=== PATIENT | female | born 1965 | race Caucasian/White ===

== ENCOUNTER 2025-02-23 14:36 | Outpatient (AMB) | payer OTHER, SELFPAY ==
--- NOTE | 2025-02-23 14:43 | A.OFFPC_ITS ---
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 Required: No Accompanied by: Self / Same As Patient Allergies Penicillins (PENICILLINS) Allergy (Mild, Verified 02/23/25 16:08) RASH, SOB acetaminophen (ACETAMINOPHEN) Allergy (Unknown, Verified 02/23/25 16:08) UNSPECIFIED LIVER INJURY doxycycline (DOXYCYCLINE) Allergy (Unknown, Verified 02/23/25 16:08) SENSITIVITY hydromorphone (From DILAUDID) Allergy (Unknown, Verified 02/23/25 16:08) TACHYCARDIC Penicillin Allergy (Unknown, Verified 02/23/25 16:08) Unknown silver (From TEGADERM AG MESH) Allergy (Unknown, Verified 02/23/25 16:08) RASH Sulfa Allergy (Unknown, Verified 02/23/25 16:08) Unknown Sulfa (Sulfonamide Antibiotics) (SULFA (SULFONAMIDE ANTIBIOTICS)) Adverse Reaction (Mild, Verified 02/23/25 16:08) REDNESS Dilaudid Allergy (Unknown, Uncoded 02/23/25 16:08) Unknown Doxycycline Allergy (Unknown, Uncoded 02/23/25 16:08) Unknown Mums Allergy (Unknown, Uncoded 02/23/25 16:08) Unknown Pt states no known food allerg Allergy (Unknown, Uncoded 02/23/25 16:08) Unknown Tegaderm Allergy (Unknown, Uncoded 02/23/25 16:08) Unknown Tegaderm Ag Mesh 16 x16 Allergy (Unknown, Uncoded 02/23/25 16:08) Unknown Tylenol Allergy (Unknown, Uncoded 02/23/25 16:08) Unknown MUMS Adverse Reaction (Unknown, Uncoded 02/23/25 16:08) ALLERGY ATTACK Medication List - Last Reconciled 02/23/25 by Shailesh Hernandez MD aspirin 81 mg PO DAILY atorvastatin 80 mg PO DAILY bisacodyl (Dulcolax (bisacodyl)) 5 mg PO BEDTIME blood sugar diagnostic (FreeStyle Lite Strips) As directed blood-glucose meter (FreeStyle Lite Meter kit) As directed cetirizine (All Day Allergy (cetirizine)) 10 mg PO DAILY PRN clonazepam 1 mg PO QID clonidine HCl mg PO cyclobenzaprine 5 mg PO BEDTIME PRN fluticasone propionate 50 mcg/actuation 1 spray intranasal DAILY gabapentin 100 mg PO BID gabapentin 1,200 mg PO BEDTIME hydrochlorothiazide 25 mg PO DAILY ibuprofen 400 mg PO Q8H indomethacin 25 mg PO TID insulin glargine (Lantus Solostar U-100 Insulin) 25 units subcut BEDTIME lancets (FreeStyle Lancets) As directed loperamide 2 mg PO BID PRN meclizine 25 mg PO TID PRN metformin ER 1,000 mg PO BID pen needle, diabetic As directed sumatriptan succinate mg PO tirzepatide (Mounjaro) 5 mg subcut QWEEK Tobacco use date assessed: 02/23/25 Dental Screening Dental Screen Date: 02/23/25 Did you have a dental visit in the last 12 months?: No Did you have a dental problem in the last 6 months where you did not have access to dental care?: No Was dental information given to patient?: Yes HPI HPI Comments History of Present Illness Details The patient is a 59 year old female presenting to [facility]. She has history of HTN, HLD, CHEY, MDD, Migraine, IDDM, Stroke. The patient reports severe depression and anxiety. She reports feeling very depressed, anxious, hopeless, and tearful for over a week, though symptoms have been present longer. She contacted a behavioral health network a week ago and again yesterday due to worsening symptoms, including uncontrollable crying and dark thoughts. She denies intent to harm herself or others, but expressed fear of driving while crying and understanding why others may reach a point of self- harm. She has been without her prescription for clonazepam, which she finds effective for her anxiety, for about two weeks and is currently using cannabis for symptom relief. The patient has a history of an embolic stroke in January 2023, for which she follows up with neurologist Dr. Merly Brown. She has residual left-sided weakness in her arm and leg and difficulty with stairs. There is a suspected clotting disorder, but the patient was not sure if she needs to see a recordak operator or hematlogist for the issue so she missed prior appointments. There is a family history of strokes and clotting issues in her father and a sister. Her other chronic conditions include type 2 diabetes, hypertension, chronic depression, anxiety disorder, PTSD from a traumatic childhood, IBS, and migraines. She is self-managing her diabetes medications, including insulin glargine and metformin. She is currently experiencing painful hemorrhoids and constipation. Past surgical history includes a bariatric sleeve procedure in February 2010, a hernia repair in April or May of 2010, and a cervical fusion. Her father from kidney failure related to diabetes, and her mother from complications of dementia. [facility] Surgical History (Updated 02/23/25 @ 15:29 by Shailesh Hernandez MD) Hernia H/O gastric sleeve Family History (Updated 02/23/25 @ 15:31 by Shailesh Hernandez MD) Father Kidney failure Diabetes Mother Dementia Social History Housing: House Patient Tobacco Use Status: Former Tobacco user Years Smoked: 12 years e-Cigarette/Vaping Use: Never Used Substance Use Type: Marijuana service: No Current occupational status: unemployed and disabled Hearing needs: No Vision needs: Yes Questionnaire PHQ-9 Over the last 2 weeks, how often have you been bothered by any of the following problems? 1. Little interest or pleasure in doing things: not at all 2. Feeling down, depressed, or hopeless: not at all 3. Trouble falling or staying asleep, or sleeping too much: not at all 4. Feeling tired or having little energy: nearly every day 5. Poor appetite or overeating: nearly every day 6. Feeling bad about yourself - or that you are a failure or have let yourself or your family down: nearly every day 7. Trouble concentrating on things, such as reading the newspaper or watching television: nearly every day 8. Moving or speaking so slowly that other people could have noticed. Or the opposite - being so fidgety or restless that you have been moving around a lot more than usual: nearly every day 9. Thoughts that you would be better off or of hurting yourself in some way: nearly every day Total score: 18 Depression Screening Interpretation: Positive (Patient will go to the ED to be admitted to psych [facility]. ) Depression Screening Done: Yes Source: Developed by Drs. Brady L. RainerChrissy estrada Kurt Kroenke and colleagues, with an educational janell from [employer]. Thrive Questionnaire I am a: Patient What is your living situation today?: I have a steady place to live Within the past 12 months, did the food you bought not last and you didn't have the money to get more?: Often true Within the past 12 months, did you worry whether your food would run out before you got money to buy more?: Often true Do you have trouble paying for medicines?: Yes Do you have trouble getting transportation to medical appointments?: Yes Do you have trouble paying your heating and electricity bill?: Yes Do you have trouble taking care of your child, family member or friend?: No Do you have trouble with day-to-day activities such as bathing, preparing meals, shopping, managing finances, etc.?: Yes Are you currently unemployed and looking for a job?: No Are you interested in more education?: No Currently or been in a relationship where the following occur: No concerns reported THRIVE Score: 4 AUDIT C Alcohol Use Questionnaire (AUDIT-C) 1. How often do you have a drink containing alcohol?: 2-4 times a month 2. How many drinks containing alcohol do you have on a typical day when you are drinking?: 1 or 2 3. How often do you have six or more drinks on one occasion?: Never Total Score: 2 CHEY-7 AMB Questionnaire CHEY-7 Feeling nervous, anxious, or on edge: 3 = Nearly every day Not being able to stop or control worryin = Nearly every day Worrying too much about different things: 3 = Nearly every day Trouble relaxin = Nearly every day Being so restless that it is hard to sit still: 3 = Nearly every day Becoming easily annoyed or irritable: 3 = Nearly every day Feeling afraid as if something awful might happen: 3 = Nearly every day Total CHEY-7 score (0-4 normal; 5-9 mild; 10-14 moderate; 15-21 severe): 21 Source: Developed by Chrissy Yañez Kurt Kroenke and colleagues, with an educational janell from [employer]. Review of Systems Const Details: As per HPI. Physical exam (Primary Care) Vital Signs: Last Vital Signs Temp 97.7 F 02/23/25 14:46 Pulse 67 02/23/25 14:46 Resp 18 02/23/25 14:46 BP 110/40 L 02/23/25 14:46 Pulse Ox 98 02/23/25 14:46 Oxygen Delivery Method Room Air 02/23/25 14:46 BMI result Body Mass Index 34.4 Tobacco/Smoking Status: Tobacco use Status Tobacco use date assessed 02/23/25 02/23/25 15:05 Patient Tobacco Use Status Former Tobacco user 02/23/25 15:05 e-Cigarette/Vaping Use Never Used 02/23/25 15:05 PHQ-9: PHQ-9 Score PHQ-9: Total score 18 02/23/25 15:05 Depression Screening Interpretation: Positive (Patient will go to the ED to be admitted to psych [facility]. ) Currently or been in a relationship where the following occur: No concerns reported Const Other: Pertinent findings are in BOLD Physical exam was limited to heart and lung exam as the patient was tearful and in bad mental state. GENERAL APPEARANCE NAD, activity normal for age, well developed/ well nourished, no cyanosis, pallor, or diaphoresis. EYES lids/conjunctiva normal. EARS/NOSE/THROAT Mucous membranes moist, nares normal, lips/teeth normal uvula midline without oral pharyngeal erythema, exudate or swelling TMs normal bilaterally. No lymphangitis/lymphedema. HEAD/NECK normocephalic atraumatic, no facial trauma, neck is supple. RESPIRATORY respiratory effort normal, speaks in full sentences, no tripod position, no accessory muscle use. Lungs clear to auscultation without rhonchi, wheezes, rales CARDIAC Regular rate and rhythm, no edema. ABDOMINAL Soft, ND/NT. No evidence of fluid wave. No pulsatile masses on exam, rebound tenderness, Clements sign or pain over Mcburney's point. MUSCLES/EXTREMITIES No abnormal range of motion, no swelling. SKIN Warm, pink and dry. No rashes, dermatoses, petechiae or lesions. NEUROLOGICAL Speech is clear and appropriate. Normal level of consciousness. Gait and coordination are normal. 5/5 strength in all extremities. PSYCH Normal mood and affect. Judgement/competence is appropriate Coding Level of Care Code New Pt Level 5 (32525) Diagnoses Depression F32.A Clotting disorder D68.9 Stroke I63.9 CHEY (generalized anxiety disorder) F41.1 Diabetes E11.9 Encounter to establish care Z76.89 Hemorrhoid K64.9 Assessment & Plan Assessment & Plan (1) Depression: Code(s): F32.A - Depression, unspecified Category: Medical Plan: - The patient was strongly advised to go to the emergency department immediately for acute psychiatric evaluation and potential admission due to the severity of her depressive symptoms, anxiety, and feeling out of control. - A referral to psychiatry will be placed to assist with mood management. - Clonazepam will not be prescribed at this time as the patient was off the medication for couple weeks. - The patient was advised to ensure she has a follow-up psychiatry appointment and a clear medication plan established before discharge from the hospital. - Follow-up is scheduled in 4 weeks to reassess her mood and overall status. (2) Clotting disorder: Code(s): D68.9 - Coagulation defect, unspecified Category: Medical Plan: - A referral will be made to Hematology for evaluation of a possible clotting disorder, given her personal and family history of stroke. (3) Stroke: Code(s): I63.9 - Cerebral infarction, unspecified Category: Medical Plan: Continue ASA and Atorvastatin. Follows with [facility] neurology. Continue [facility] care. (4) CHEY (generalized anxiety disorder): Code(s): F41.1 - Generalized anxiety disorder Category: Medical Plan: Same as under MDD. (5) Diabetes: Code(s): E11.9 - Type 2 diabetes mellitus without complications Category: Medical Plan: Continue Metformin and Insulin. Will check labs with next visit. Will referr to podiatry and ophthalmo with next visit. (6) Encounter to establish care: Code(s): Z76.89 - Persons encountering health services in other specified circumstances Category: Medical Plan: Patient's Past, surgical, medical, family history was reviewed. General labs including CBC, CMP, Lipid panel, TSH, A1C were not ordered as the patient is in an acute psychiatric crisis. Medications refilled. Recent labs, imaging, documents, chart reviewed. - Rest of general health maintenance will be addressed during PE. (7) Hemorrhoid: Code(s): K64.9 - Unspecified hemorrhoids Category: Medical Plan: - A hemorrhoid suppository was prescribed to manage current symptoms. Plan I had an extensive discussion with the patient regarding her severe depression, anxiety, and feeling of being out of control. I strongly recommended that she go to the emergency department immediately for an urgent psychiatric evaluation, and she agreed to this plan. I informed her that referrals would be made to both psychiatry for mood management and to hematology to investigate a potential clotting disorder. I advised her to ensure she has a follow-up appointment with psychiatry and a clear medication plan before being discharged from the hospital. We agreed to a follow-up visit in 4 weeks. Orders: Orders Complete Blood Count Auto Diff Today Z76.89 - Persons encountering health serv ices in other specified circumstances Comprehensive Met. Panel Today Z76.89 - Persons encountering health services in other specified circumstances Hemoglobin A1c Today Z76.89 - Persons encountering health services in other specified circumstances HIV Ab/Ag Today Z76.89 - Persons encountering health services in other specified circumstances Hepatitis C Antibody Reflex Today Z76.89 - Persons encountering health services in other specified circumstances TSH reflex Free T4 Today Z76.89 - Persons encountering health services in other specified circumstances Lipid Panel Today Z76.89 - Persons encountering health services in other speci fied circumstances Referrals Psychiatry Referral F32.A - Depression, unspecified Hematology & Oncology Referral D68.9 - Coagulation defect, unspecified Medications: New gabapentin 100 mg PO BID 30 caps 3RF gabapentin 1,200 mg (3 x 400 mg) PO BEDTIME 30 caps 3RF hydrochlorothiazide 25 mg PO DAILY 60 tabs 3RF insulin glargine (Lantus Solostar U-100 Insulin) 25 units (0.25 mL) subcut BEDTIME 15 mL 3RF metformin ER 1,000 mg (2 x 500 mg) PO BID 120 tabs 3RF tirzepatide (Mounjaro) 5 mg (0.5 mL) subcut QWEEK 2 mL 4RF hydrocortisone acetate (Hemmorex-HC) 25 mg [place] DAILY 12 ea 2RF
[2025-02-23 14:46] VITALS: BP 110/40; PULSE 67; RESP 18; TEMP 36.5; O2SAT 98; BMI 34.4
--- OUTSIDE RECORDS SUMMARY | 2025-02-23 16:58 | XMS_ITS | Data Portability ---
Author Organization [employer], [facility] Address [address] [place] [address] Care Team Providers Care Tie Sawyer Name Role Phone HIM CCA OTHER Assessment Encounter Date Assessment Date Assessment LastModified by Organization Details LastModified Time 02/04/2024 02/04/2024 As noted, we pascual mckeon called to see this patient regarding concerns of sinus infection. 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 The evaluation revealed 58y F with chronic rhinosinusitis seen by PCP several times over past year inc 3 wks ago, has not responded to course of abx, referred to ENT but missed appt. No new/acute issues, no fever, chills, exam reassuring without signs of stroke - has some basleine weakness on left from stroke 1 y ago. Ekg reassuring. Counseled on nasal saline, intranasal steroids, fu with PCP to see if they can accelerate time to ENT, referral for vestibular therapy (dizziness), consider sinus imaging. Impression: chronic rhinosinusitis Plan: f/u w PCP and ENT Primary care, consider f/u in office in -10 to provide support for ongoing symptoms Disposition: We discussed the diagnostic uncertainty of home visits and the risk associated with this. In this case, the patient and I felt this to be an acceptable and reasonable amount of risk given the benefit of avoiding an ED visit. We discussed the need to seek care urgently/emergent ly in the setting of any new or worsening serious symptoms, particularly fever, worsening headache, vision changes, ear pain. atilhou Not available 02/04/2024 19:56:11 Plan of Treatment Reminders Order Date Submit Date Provider Last Modified By Organization Details Last Modified Time Details Appointments None record ed. Lab None record ed. Referral None record ed. Procedures None record ed. Surgeries None record ed. Imaging None record ed. Medication Orders None record ed. Patient TargetsNo targets recorded. Patient InstructionsNo instructions recorded. Reason for Referral None Reported. Medical Equipment None Reported. Allergies Allergen ID Allergen Name Allergen Category Reaction Reaction Severity Criticality Documentation Date Start Date Code Code System Note Provider Name and Address Organization Details Recorded Time Product containin g penicilli n (product) medicatio n Not available Not available Not available 02/04/2024 20789 8001 SNOMED Not Available [facility] - production 4 16:29:30 85557 Bactrim medicatio n Not available Not available Not available 02/04/2024 23868 9 [facility]30 47196 doxycycli ne Not available Not available Not available Not available 02/04/2024 3640 Rx[facility] 16:29:30 37188 Dilaudid medicatio n Not available Not available Not available 02/04/2024 17927 3 RxNorm [facility] 16:29:30 36422 Lamictal medicatio n Not available Not available Not available 02/04/2024 91101 2 RxNorm [facility] 16:[facility]30 Medications Name Sig Start Date Stop Date Status Note LastModified by Organization Details LastModified Time atorvastatin 80 mg tablet TAKE 1 TABLET BY MOUTH EVERY DAY active Not Available Not Available No t Available clonidine HCl 0.1 mg tablet TAKE ONE TAB BY MOUTH IN THE MORNING, 1 TAB AT NOON, AND 2 TABS AT NIGHT active Not Available Not Available No t Available loperamide 2 mg capsule TAKE 1 CAPSULE BY MOUTH TWICE A DAY NEEDED FOR LOOSE STOOL active Not Available Not Available Not Available trazodone 50 mg tablet TAKE 1 - 3 TABLETS BY MOUTH AT BEDTIME NEEDED FOR INSOMNIA active Not Available Not Available No t Available azithromycin 250 mg tablet TAKE 2 TABLETS BY MOUTH TODAY, THEN TAKE 1 TABLET DAILY FOR 4 DAYS DIRECTED active Not Available Not Available No t Available FreeStyle Lancets 28 gauge USE 1 LANCET FOR 3 TIMES A DAY USE. E11.65 active Not Available Not Available No t Available sumatriptan 25 mg tablet TAKE 1 TABLET BY MOUTH AT ONSET OF MIGRAINE. MAY REPEAT DOSE ONCE AFTER 2 HOURS. active Not Available Not Available No t Available gabapentin 400 mg capsule TAKE 3 CAPSULES BY MOUTH AT BEDTIME active Not Available Not Available No t Available clonazepam 1 mg tablet TAKE 1 TABLET BY MOUTH THREE TIMES A DAY active Not Available Not Available Not Available meclizine 12.5 mg tablet TAKE 2 TABLETS BY MOUTH 3 TIMES A DAY active Not Available Not Available Not Available indomethacin 25 mg capsule TAKE 1 CAPSULE BY MOUTH 3 TIMES A DAY WITH FOOD OR MILK active Not Available Not Available No t Available aspirin 81 mg chewable tablet CHEW 1 TABLET BY MOUTH EVERY DAY active Not Available Not Available No t Available hydrochlorot hiazide 25 mg tablet TAKE 1 TABLET BY MOUTH EVERY DAY DIRECTED active Not Available Not Available No t Available mupirocin 2 % topical ointment APPLY A SMALL AMOUNT TO AFFECTED AREA 3 TIMES A DAY active Not Available Not Available Not Available gabapentin 100 mg capsule TAKE 1 CAPSULE BY MOUTH TWICE A DAY active Not Available Not Available No t Available nystatin 100,000 unit/gram topical powder APPLY TO AFFECTED AREA TWICE A DAY active Not Available Not Available No t Available epinephrine 0.3 mg/0.3 mL injection, auto-injecto r INJECT 1 PEN INTRAMUSCUL REAGAN DIRECTED NEEDED active Not Available Not Available No t Available levofloxacin 500 mg tablet TAKE 1 TABLET EVERY 24 HOURS BY ORAL ROUTE DIRECTED FOR 7 DAYS. active Not Available Not Available Not Available ketoconazole 2 % topical cream APPLY TOPICALLY EVERY DAY DIRECTED FOR 14 DAYS active Not Available Not Available Not Available ondansetron 4 mg disintegrati ng tablet PLACE 1 TABLET ON TONGUE 3 TIMES A DAY NEEDED FOR 10 DAYS active Not Available Not Available Not Available fluticasone propionate 50 mcg/actuatio n nasal spray,suspen nisa USE 1-2 SPRAYS INTO EACH NOSTRIL ONCE A DAY DIRECTED active Not Available Not Available Not Available metformin ER 500 mg tablet,exten ded release 24 hr TAKE 2 TABLETS BY MOUTH TWICE A DAY active Not Available Not Available No t Available cyclobenzapr ine 5 mg tablet TAKE 1 TABLET BY MOUTH EVERY DAY AT BEDTIME NEEDED active Not Available Not Available No t Available cholestyrami ne (with sugar) 4 gram powder for susp in a packet MIX 4 GRAMS IN WATER 3 TIMES A DAY X 30 DAYS (ORANGE FLAVOR DO NOT GIVE LITE) active Not Available Not Available No t Available BD Ultra-Fine Mini Pen Needle 31 gauge x 3/16 USE DIRECTED FOR ONCE DAILY INJECTIONS. E11 65 active Not Available Not Available No t Available FreeStyle Lite Strips TAKE 1 STRIP 3 TIMES A DAY active Not Available Not Available Not Available Lantus Solostar U-100 Insulin 100 unit/mL (3 mL) subcutaneous pen INJECT 25 UNITS EVERY DAY SUBCUTANEOU SLY active Not Available Not Available No t Available FreeStyle [place] Lite kit USE DIRECTED. E11.65 active Not Available Not Available No t Available Victoza 3-Elvis 0.6 mg/0.1 mL (18 mg/3 mL) subcutaneous pen injector INJECT 1.2 MG UNDER THE SKIN ONCE DAILY active Not Available Not Available N ot Available BD Magali 2nd Gen Pen Needle 32 gauge x USE DIRECTED ONCE DAILY active Not Available Not Available N ot Available Mounjaro 5 mg/0.5 mL subcutaneous pen injector INJECT 1 PEN (5 MG) SUBCUTANEOU SLY ONCE WEEKLY active Not Available Not Available No t Available Mounjaro 2.5 mg/0.5 mL subcutaneous pen injector INJECT 2.5 MG SUBCUTANEOU SLY WEEKLY active Not Available Not Available N ot Available Vitals Date Recorded Heart rate Respiratory rate Body temperature Oxygen saturation Systolic And Diastolic Provider Name and Address Organization Details Last Updated DateTime 4 77 /min 20 /min 97.6 [degF] 98 % 132/76 mm[Hg] Not Available [facility] - production 4 19:44:42 Social History None recorded. Functional Status None recorded. Mental Status None recorded. Family History Nothing Reported. Medical History No medical history recorded. Gynecological HistoryNo gynecological history recorded. Obstetrics History GPAL:G 0 P 0 0 0 0 Past Encounters Encounter ID Performer Location Encounter Start Date Encounter Closed Date Diagnosis/Indication Diagnosis SNOMED-CT Code Diagnosis ICD10 Code Diagnosis IMO Codes Diagnosis Note [id number] Brissa Jackson MD [facility] [address] [place] [phone] 02/04/2024 19:44:32 02/04/2024 21:58:16 Chronic rhinosinusitis 282586521 J31.0 Health Concerns Section Related Observation LastModified by Organization Detai ls LastModified Time None Recorded Concern Status LastModified by Organization Details LastModified Time None Recorded Advance Directives Directive None Recorded Payers Insurance Date Sequence Insurance Name Policy Number Policy Gilbert Covered Member ID Gilbert Member ID Guarantor Name 02/15/2025 1 [facility] - DOS ON OR AFTER 2022 - DUAL ELIGIBLE - RESIDENTIAL OPTIONS AND ONE CARE (MEDICARE REPLACEMENT/AD VANTAGE - HMO) Mallorie Cleveland [id number] Mallorie Cleveland Notes Date Note Type Note Provider Name and Address Organization Details Recorded Time 02/04/2024 text/html HPI: Member reports dizziness, weakness, headaches , member feels she had fever but the fever broke .................... .................... .................... .................... .................... .................... .................... . [facility] Nurse Triage Notes (Moira Waddell): Chief Complaints: Dizziness, Headache, Weakness PMH: Stroke, Depression, Post-Traumatic Stress Disorder (PTSD), Diabetes Mellitus Type 2 Comments: 02/03 4:20p- call to patient to gain additional details. She had an ischemic stroke 01/2023 with left sided residual. She has had 2 days of dizziness with standing, walking and movement with generalized weakness, +headache, denies any vision changes, no chest pain or shortness of breath. Patient very verbal, and in no acute distress during this intake. Patient thinks she may be dehydrated due to poor oral intake- Clinical Orthoptist Organization Information for Isaiah Herring Legal Name: [employer] Address: [address] [place] [id number], Laboratory Helper: Barron Tucker MD CLIA No.: [id number] Clinical Orthoptist POC Test Results from [facility] Herring EKG (19:24:29) EKG test performed. Attachments uploaded as part of this test result can be found under Documents section. Blood Glucose Measurement (19:29:52) Blood Glucose: 153 mg/dL [facility] HPI: headache, weakness. sinus congestion and pressure. pain in jaw keri left side. ongoing for several months. f/w primary - seen a few weeks ago, referred to ENT. missed that appointment. recommended against abx at this visit 3wks ago by PCP. Separately, stroke one year ago. some ongoing left sided deficits. some dizziness. .................... .................... .................... .................... .................... .................... .................... . Clinical Orthoptist Note From Isaiah Herring: Responded to residence for a 58 y/o female with complaint of dizziness, looking for sinus pain relief. Upon arrival, pt found sitting on couch. Pt states that she has been feeling very dizzy and has been experiencing upper respiratory/sinus illness for several months now with no relief. Pt states that she has had antibiotics prescribed multiple times with mild relief, however sinus pressure and illness reappears after a short duration. Pt has spoken with PCP and had a ENT appointment that pt had shown up a week early for, then missed the actual appointment. Pt states that sinus pressure is severe and pt symptoms may be related to sinus pressure. Provider obtained vital signs as noted and assessed pt, finding CAOX4 airway open and patent, no distress noted. Pt -sob, -cp, -td, -jvd, -n/v/d, +dizzy when standing and ambulating. Pt states headache due to blowing her nose constantly. HEENT normal, lung sounds clear in all chavez, equal and bilateral chest rise and fall noted. 12 lead and FSBG obtained, 12 lead non diagnostic for STEMI, normal sinus rhythm noted. Blood glucose within normal levels, pt having eaten earlier in the evening, approx 2 hours prior to provider arrival. FAST ED stroke scale assessed, score 0. Interventions done to rule out dizziness from other means. [facility] contacted and care discussed. [facility] states that pt best treatment would be going to ENT doctor for further care, pt having more specialization to determine reason for constant pressure and infection. [facility] advised pt to make appointment and follow up with asking for a sinus ct, if deemed appropriate. Red flags mentioned, provider answering any questions by pt. Provider then left the residence. All times approximate. .................... .................... .................... .................... .................... .................... .................... . [facility] Consulted: Brissa Jackson .................... .................... .................... .................... .................... .................... .................... . Disposition: Fulfilled Brissa Jackson MD [address] [facility], [place], [address], [employer] 02/04/2024 20:34:54 OBGyn Episode No OBEpisode recorded.
--- OUTSIDE RECORDS SUMMARY | 2025-02-23 16:58 | XMS_ITS | Patient Health Record ---
Author Organization [facility] Address [address] [place] [address] Care Team Providers Care Governor Assembler Name Role Phone DELORES HOU Primary Care Provider LISA Ruiz Unavailable [phone] Allergies Allergen (clinical drug ingredient) Drug/Non Drug Allergy documented on EMR Reaction Allergy Type Onset Date Status hydromorphone Dilaudid Rapid Heartbeat Drug Allergy Active acetaminophen Tylenol Sensitivity Drug Allergy A ctive Penicillin Skin Redness, Itch/Rash Drug Allergy Active Substance with sulfonamide structure and antibacterial mechanism of action (substance) Sulfa Antibiotics Skin Redness Drug Allergy Active Tegaderm anaphylaxis Allergy Active Reason For Referral No Information Medications Medication SIG (Take, Route, Frequency, Duration) Notes Start Date End Date Status Biotin 13635 MCG as directed Orally Active Wellbutrin SR 100MG 1 ORAL twice daily; Duration: -3 [facility] 10/04/2011 Not-Taking metroNIDAZOLE 0.75 % 1 application Externally Twice a day Active traZODone HCl 100MG 1 ORAL at bedtime; Duration: -3 [facility] 05/23/2011 Not-Taking Soma 350MG 1 ORAL four times daily; Duration: 10 [facility] 06/20/2011 Not-Taking Omeprazole 40 MG 1 capsule 30 minutes before morning meal Orally Once a day [facility] 10/04/2011 Active Flonase 50MCG 2 Nasal daily; Duration: -3 [facility] 12/13/2010 Active Fish Oil 1 ORAL daily; Duration: -3 [facility] 05/23/2011 Not-Taking EpiPen 2-Elvis 0.3 MG/0.3ML Intramuscula; Duration: -3 [facility] 05/26/2013 Active cloNIDine HCl 0.2MG 1 ORAL daily; Duration: -3 [facility] 05/23/2011 Not-Taking Multivitamins 1 ORAL daily; Duration: [facility] 03/13/2011 Active Mirena Intrauterine; Duration: [facility] 05/26/2013 Active lamoTRIgine 300MG 1 ORAL at bedtime; Duration: [facility] 05/26/2013 Not-Taking cloNIDine HCl 0.1MG 1 ORAL four times daily; Duration: [facility] 03/13/2011 Active Carisoprodol 350MG 1 ORAL four times daily; Duration: [facility] 12/13/2010 Not-Taking Inocencia 20MG 1 ORAL TWICE DAILY; Duration: [facility] 05/26/2013 Not-Taking Aller-Time 10 MG Active Gabapentin 300 MG 1 capsule Orally Once a day; Duration: 30 day(s) Takes 100 MG also 1 PO QD Active clonazePAM 1 MG 1 tablet Orally Once a day Up to 4 X a Day Active Ondansetron HCl 4 MG 1 tablet Orally Once a day; Duration: 30 day(s) PRN Active ZyrTEC 10MG 1 ORAL daily; Duration: [facility] 03/13/2011 Not-Taking hydroCHLOROthiazide 25 MG 1 tablet in morning Orally Once a day; Duration: 30 day(s) Active metFORMIN HCl 1000 MG 1 tablet with a meal Orally Once a day; Duration: 30 day(s) 2 Tabs 2000MG/ QD Active Januvia 100 MG 1 tablet Orally Once a day; Duration: 30 day(s) Active Victoza 18 MG/3ML as directed Subcutaneous 0.6 Inj @ bedtime Active Social History Tobacco Use: Social History Observation Description Date Details (start date - stop date) Former Smoker NA - NA Tobacco Use/Smoking Question Answer Notes Are you a former smoker How long has it been since you last smoked? > 10 years Alcohol Screen (Audit-C) Question Answer Notes Did you have a drink contain ing alcohol in the past year? Yes How often did you have a dri nk containing alcohol in the past year? Monthly or less (1 point) How many drinks did you have on a typical day when you were drinking in the past year? 1 or 2 drinks (0 point) How often did you have 6 or more drinks on one occasion in the past year? Never (0 point) Points 1 Interpretation Negative Problems Problem Type SNOMED Code ICD Code Onset Dates Problem Status W/U Status Risk Notes Problem Essential hypertension (16972765) Essential (primary) hypertension (I10) Active confirmed Problem Disorder due to type 2 diabetes mellitus (592479133) Type 2 diabetes mellitus with unspecified complications (E11.8) Active confirmed Problem Recurrent major depression (93497680) Major depressive disorder, recurrent, unspecified (F33.9) Active confirmed Problem Anxiety disorder (199166072) Anxiety disorder, unspecified (F41.9) Active confirmed Problem Post-traumatic stress disorder (40366825) Post-traumatic stress disorder, unspecified (F43.10) Active confirmed Problem Uncomplicated asthma (disorder) (057626433) Unspecified asthma, uncomplicated (J45.909) Active confirmed Problem Gastroesophageal reflux disease with esophagitis (disorder) (111713715) Gastro-esophagea l reflux disease with esophagitis, without bleeding (K21.00) Active confirmed Problem Severe major depression, single episode, without psychotic features (87184193) Major depressive disorder, single episode, severe, without mention of psychotic behavior (296.23) Active confirmed Major Problem Chronic bipolar I disorder, most recent episode depressed (disorder) (72324355) Bipolar I disorder, most recent episode (or current) depressed, unspecified (296.50) Active confirmed Major Problem Type II diabetes mellitus without complication (898148836) Diabetes mellitus without mention of complication, type II or unspecified type, not stated as uncontrolled (250.00) Active confirmed Major Problem Obesity (743620227) Obesity, unspecified (278.00) Active confirmed Major Problem Anxiety state (486200341) Anxiety state, unspecified (300.00) Active confirmed Major Problem Panic disorder without agoraphobia (90814299) Panic disorder without agoraphobia (300.01) Active confirmed Major Problem Essential hypertension (11545502) Unspecified essential hypertension (401.9) Active confirmed Major Plan Of Treatment Pending Test Test Name Order Date ULTRASOUND: PELVIC W/TRANSVAGINAL 2021 MM Digital Screening Mammogram 3D 2021 Insurance Providers Payer Name Payer Address Payer Phone Subscriber Number Group Number Insured Name Patient Relationship to Insured Coverage Start Date Coverage End Date [facility] [id number] AUBREE Marquez, GURWINDER [id number] [facility], CHARLY Self - patient is the insured Medical (General) History Medical History History ICD Code Unspecified asthma, uncomplicated J45.90 9 Anxiety disorder, unspecified F41.9 Type 2 diabetes mellitus with unspecifie d complications E11.8 Essential (primary) hypertension I10 Gastro-esophageal reflux disease with es ophagitis, without bleeding K21.00 Post-traumatic stress disorder, unspecif ied F43.10 Major depressive disorder, recurrent, un specified F33.9 Surgical History Surgery Date(Month/Year) Gastric Sleeve 2010 Hernia 2010 Cervical Fusion 2019 Breast Reduction Breast Bx Hospitalization History Reason Date(Month/Year) See Surgical Hx
--- OUTSIDE RECORDS SUMMARY | 2025-02-23 16:58 | XMS_ITS | Data Portability ---
Author Organization [facility], [place], Main Office Address [address] [facility] [address] [place] [id number] Care Team Providers Care Toy Assembler Wood Name Role Phone JACOBY BLANDONRAMO Boiler Tube Blower LILLIAN BUSTILLOS Skills Instructor [phone] GERMANIA HERNANDEZ Psychiatrist [phone] NATTY CHANEY Drier And Evaporator Operator LAURENT AGUAYO Neurosurgeon LAMIN LARRY Skills Instructor SUNITHA BIRCH General Surgeon DELORES HOU Primary Care Provider MARLEY ARANGO Field Marketing Representative Assessment Encounter Date Assessment Date Assessment LastModified by Organization Details LastModified Time 07/03/2023 07/03/2023 Mallorie was recently evaluated in the emergency room for dizziness, where she underwent a CT angiography of the head and neck, as well as a CT scan of the brain. Based on these recent imaging results and a physical examination that showed no changes from her previous neurological assessments, I do not believe additional imaging is warranted at this time. Her existing symptoms, including left-sided weakness in the upper and lower extremities and mild facial paralysis, remain unchanged from her previous strokes. Although she was a bit unsteady for the Lakeland-Hallpike maneuver, making it unfeasible to perform, she is already on meclizine for dizziness. Recent blood work showed elevated glucose levels; however, as her dizziness symptoms have resolved, they are unlikely to be related to hypoglycemia. Given the transient and positional nature of her symptoms, her history is consistent with Benign Paroxysmal Positional Vertigo (BPPV). We will initiate a trial of physical therapy to see if this improves her symptoms. Additionally, Mallorie is on multiple medications that are quite sedating, which may contribute to her dizziness and potential orthostatic issues. I encouraged her to stay hydrated and to discuss with her psychiatrist the possibility of adjusting her medications to reduce the risk of dizziness. Despite no new findings on physical examination, given her complaint of neck pain, I will order a neck x-ray to rule out any injury. We will continue with her current muscle relaxant, as further medication adjustments are not indicated at this time. However, I am cautious about the additive sedative effects of the muscle relaxant and her other medications possibly exacerbating her dizziness. I advised Mallorie that should her dizziness return or if symptoms worsen, she should reach out to us. Given her history of strokes, it is crucial for her to remain vigilant as she is at high risk for another stroke. Proper care and preventive measures are essential to manage her risk. [email or web address] Not available 07/03/2023 20:16:08 08/04/2023 08/04/2023 She comes mary Not available 22:22:14 01/18/2024 01/18/2024 Discussed with patient the signs/symptoms warranted for a return to office visit and/or an ER visit. Patient understood and agreed with the plan. [email or web address] Not available 01/18/2024 09:32:22 Plan of Treatment Reminders Order Date Submit Date Provider Last Modified By Organization Details Last Modified Time Details Appointments None recor ded. Lab rapid flu (A+B) 2023 024 SHABNAM In-Office Order, Internal Use Only DO Not Attach Compendium DO Not Attach Compendium, Do Not Delete/merge, [id number] 14:14:27 rapid SARS CoV 2 Ag, QL IA, respi rator y speci men 2023 024 [email or web address] In-Office Order, Internal Use Only DO Not Attach Compendium DO Not Attach Compendium, Do Not Delete/merge, [id number] 4 10:19:36 HbA1c (hemo globi n A1c), blood 2023 024 SHABNAM [facility] (Centralized Electronic Ordering - All Locations), Patient Can Go To The Location Of Their Choice, [id number] 4 10:43:29 micro album in/cr eatin ine, mass ratio , urine 2023 024 SHABNAM [facility] (Centralized Electronic Ordering - All Locations), Patient Can Go To The Location Of Their Choice, [id number] 4 10:43:29 CMP, serum or plasm a 2023 024 SHABNAM [facility] (Centralized Electronic Ordering - All Locations), Patient Can Go To The Location Of Their Choice, [id number] 4 10:43:29 Referral podia trist refer ral 2023 024 [facility], [address] [address], [place], [address], 5 09:20:39 diabe tic ophth almol ogy refer ral 2023 024 [email or web address] Not available 4 11:42:30 occup ation al thera pist refer ral - DX: Left hemip legia p cva eval & treat 2-3x/ wk x 4 wks 2023 024 [facility], [address], [address], 5 09:20:40 physi ishan thera pist refer ral - Pleas e see for BPPV 2023 024 [email or web address] Not available 4 10:40:07 Procedures None recor ded. Surgeries None recor ded. Imaging XR, cervi ishan spine 2023 024 [facility], [address] [place], [address], 4 09:15:02 Medication Orders levof loxac in 750 mg table t 2023 024 [id number], [address] [place], [address], 10:16:07 mupir ocin 2 % topic al ointm ent 2023 024 [id number], [address] [place], [address], 14:40:28 Patient Targets Encounter Date Encounter Id Patient Goals Patient Target Last Modified By Organization Details Last Modified Time 2023 [id number] Ongoing of Microalbumin/Cre atinine Ratio yearly Not available Not available Not available Ongoing of Blood Pressure 130 / 80 Not available Not available Not available Ongoing of Hemoglobin A1C 2 times per yr Not available Not available Not available Ongoing of Hemoglobin A1C <7 Not available Not available Not available Ongoing of LDL Direct <100 Not available Not available Not available Ongoing of Cholesterol, LDL <100 Not available Not available Not available 2023 [id number] Pt advised and agrees to do moderate exercise (such as walking) for approximately 150 minutes per week; to decrease carbohydrate intake (25 % of total carbohydrates or less); and to monitor blood glucose as directed Will bring meter and/or readings to appointments. Patient preferences and goals incorporated in plan and updated/modified as needed to reflect progress toward goal. [email or web address] Not available 11/07/2023 14:24:02 Patient Instructions Encounter Date Encounter Id Patient Instructions Last Modified By Organization Details Last Modified Time 07/03/2023 [id number] neck: exercises [email or web address] Not available 07/03/2023 16:38:56 healthy upper back: exercises [email or web address] Not available 07/03/2023 16:38:56 benign paroxysma l positional vertigo (bppv): care instructions [email or web address] Not available 07/03/2023 16:38:56 dizziness: care instructions [email or web address] Not available 07/03/2023 16:38:56 2023 [id number] Medications (OTC , herbal therapies, supplements) reviewed and reconciled with patient and or caregiver, including potential side effects, drug interactions, instructions, and the consequences of not taking medication. Reviewed potential barriers to medication adherence, such as side effects from medication or cost of medication. [email or web address] Not available 11/07/2023 14:24:59 02/09/2024 [id number] Acute Sinusitis: Care Instructions [email or web address] Not available 02/09/2024 10:11:09 Reason for Referral Physical Therapist Referral for Benign paroxysmal positional vertigo Please see for BPPV Referring Physician: Carl Baird, Family Medicine, Encounter Date: 07/03/2023 Aerospace Medicine Physician Referral for Genet l disorder due to type 2 diabetes mellitus Referring Physician: Delores Hou, Internal Medicine, Encounter Date: 2023 Occupational Therapist Refer ral for Hemiplegia and/or hemiparesis following stroke DX: Left hemiplegia p cva eval & treat 2-3x/wk x 4 wks Referring Physician: Delores Hou, Internal Medicine, Encounter Date: 2023 Diabetic Ophthalmology Refer ral for Renal disorder due to type 2 diabetes mellitus Referring Physician: Delores Hou, Internal Medicine, Encounter Date: 2023 Results Created Date Observation Date Name Description Value Unit Range Abnormal Flag Note LastModifiedBy Organization Detail LastModifiedTime 02/09/20 24 02/09/2024 rapid SARS CoV 2 Ag, QL IA, respi rator y speci men RAPID SARS COV 2 negati ve Not Available In-Office Order Internal Use Only DO Not Attach Compendium DO Not Attach Compendium, Do Not Delete/merge, [id number] 02/09/2024 07:52:35 02/11/20 24 02/11/2024 rapid flu (A+B) Flu A negati ve Not Available In-Office Order Internal Use Only DO Not Attach Compendium DO Not Attach Compendium, Do Not Delete/merge, [id number] 02/09/2024 07:50:27 02/11/20 24 02/11/2024 rapid flu (A+B) Flu B negati ve Not Available In-Office Order Internal Use Only DO Not Attach Compendium DO Not Attach Compendium, Do Not Delete/merge, [id number] 02/09/2024 07:50:27 05/15/19 25 05/14/2024 CBC WITH DIFFE RENTI AL/PL ATELE T WBC 6.9 x10e3 /uL 3.4-10 .8 normal Not Available [facility] ([facility]) [address], [place], [address], 05/15/2024 06:07:55 05/15/19 25 05/14/2024 CBC WITH DIFFE RENTI AL/PL ATELE T RBC 4.04 x10e6 /uL 3.77-5 .28 normal Not Available [facility] ([facility]) [address] [place], [address], 05/15/2024 06:07:55 05/15/19 25 05/14/2024 CBC WITH DIFFE RENTI AL/PL ATELE T hemoglobin 12.2 g/dL 11.1-1 5.9 normal Not Available [facility] ([facility]) [address], [place], [address], 05/15/2024 06:07:55 05/15/19 25 05/14/2024 CBC WITH DIFFE RENTI AL/PL ATELE T hematocrit 36.4 % 34.0-4 6.6 normal Not Available [facility] ([facility]) [address] [place], [address], 05/15/2024 06:07:55 05/15/19 25 05/14/2024 CBC WITH DIFFE RENTI AL/PL ATELE T MCV 90 fL 79-97 normal Not Available [facility] ([facility]) [address] [place], [address], 05/15/2024 06:07:55 05/15/19 25 05/14/2024 CBC WITH DIFFE RENTI AL/PL ATELE T MCH 30.2 pg 26.6-3 3.0 normal Not Available [facility] ([facility]) [address] [place], [address], 05/15/2024 06:07:55 05/15/19 25 05/14/2024 CBC WITH DIFFE RENTI AL/PL ATELE T MCHC 33.5 g/dL 31.5-3 5.7 normal Not Available [facility] ([facility]) [address], [place], [address], 05/15/2024 06:07:55 05/15/19 25 05/14/2024 CBC WITH DIFFE RENTI AL/PL ATELE T RDW 14.1 % 11.7-1 5.4 Not Available [facility] ([facility]) [address], [place], [address], 05/15/2024 06:07:55 05/15/19 25 05/14/2024 CBC WITH DIFFE RENTI AL/PL ATELE T platelets 310 x10e3 /uL 150-45 0 normal Not Available [facility] ([facility]) [address], [place], [address], 05/15/2024 06:07:55 05/15/19 25 05/14/2024 CBC WITH DIFFE RENTI AL/PL ATELE T neutrophils 51 % not estab. normal Not Available [facility] ([facility]) [address], [place], [address], 05/15/2024 06:07:55 05/15/19 25 05/14/2024 CBC WITH DIFFE RENTI AL/PL ATELE T lymphs 41 % not estab. normal Not Available [facility] ([facility]) [address], [place], [address], 05/15/2024 06:07:55 05/15/19 25 05/14/2024 CBC WITH DIFFE RENTI AL/PL ATELE T monocytes 6 % not estab. normal Not Available [facility] ([facility]) [address], [place], [address], 05/15/2024 06:07:55 05/15/19 25 05/14/2024 CBC WITH DIFFE RENTI AL/PL ATELE T eos 1 % not estab. normal Not Available [facility] ([facility]) [address], [place], [address], 05/15/2024 06:07:55 05/15/19 25 05/14/2024 CBC WITH DIFFE RENTI AL/PL ATELE T basos 1 % not estab. normal Not Available [facility] ([facility]) [address], [place], [address], 05/15/2024 06:07:55 05/15/19 25 05/14/2024 CBC WITH DIFFE RENTI AL/PL ATELE T immature cells MANAGER FIRE Not Available [facility] ([facility]) [address] [place], [address], 05/15/2024 06:07:55 05/15/19 25 05/14/2024 CBC WITH DIFFE RENTI AL/PL ATELE T neutrophils (absolute) 3.5 x10e3 /uL 1.4-7. 0 normal Not Available [facility] ([facility]) [address] [place], [address], 05/15/2024 06:07:55 05/15/19 25 05/14/2024 CBC WITH DIFFE RENTI AL/PL ATELE T lymphs (absolute) 2.8 x10e3 /uL 0.7-3. 1 normal Not Available [facility] ([facility]) [address] [place], [address], 05/15/2024 06:07:55 05/15/19 25 05/14/2024 CBC WITH DIFFE RENTI AL/PL ATELE T monocytes(ab solute) 0.4 x10e3 /uL 0.1-0. 9 normal Not Available [facility] ([facility]) [address] [place], [address], 05/15/2024 06:07:55 05/15/19 25 05/14/2024 CBC WITH DIFFE RENTI AL/PL ATELE T eos (absolute) 0.1 x10e3 /uL 0.0-0. 4 normal Not Available [facility] ([facility]) [address], [place], [address], 05/15/2024 06:07:55 05/15/19 25 05/14/2024 CBC WITH DIFFE RENTI AL/PL ATELE T baso (absolute) 0.0 x10e3 /uL 0.0-0. 2 normal Not Available [facility] ([facility]) [address], [place], [address], 05/15/2024 06:07:55 05/15/19 25 05/14/2024 CBC WITH DIFFE RENTI AL/PL ATELE T immature granulocytes 0 % not estab. Not Available [facility] ([facility]) [address], [place], [address], 05/15/2024 06:07:55 05/15/19 25 05/14/2024 CBC WITH DIFFE RENTI AL/PL ATELE T immature grans (abs) 0.0 x10e3 /uL 0.0-0. 1 Not Available [facility] ([facility]) [address], [place], [address], 05/15/2024 06:07:55 05/15/19 25 05/14/2024 CBC WITH DIFFE RENTI AL/PL ATELE T NRBC MANAGER FIRE Not Available [facility] ([facility]) [address], [place], [address], 05/15/2024 06:07:55 05/15/19 25 05/14/2024 CBC WITH DIFFE RENTI AL/PL ATELE T hematology comments: MANAGER FIRE Not Available [facility] ([facility]) [address], [place], [address], 05/15/2024 06:07:55 05/15/19 25 05/15/2024 COMP. METAB OLIC PANEL (14) glucose 75 mg/dL 70-99 normal Not Available [facility] ([facility]) [address], [place], [address], 05/15/2024 06:07:56 05/15/19 25 05/15/2024 COMP. METAB OLIC PANEL (14) BUN 15 mg/dL 6-24 normal Not Available [facility] ([facility]) [address] [place], [address], 05/15/2024 06:07:56 05/15/19 25 05/15/2024 COMP. METAB OLIC PANEL (14) creatinine 0.89 mg/dL 0.57-1 .00 normal Not Available [facility] ([facility]) [address] [place], [address], 05/15/2024 06:07:56 05/15/19 25 05/15/2024 COMP. METAB OLIC PANEL (14) eGFR 75 mL/mi n/1.7 3 >59 normal Not Available [facility] ([facility]) [address] [place], [address], 05/15/2024 06:07:56 05/15/19 25 05/15/2024 COMP. METAB OLIC PANEL (14) BUN/creatini ne ratio 17 9-23 normal Not Available [facility] ([facility]) [address] [place], [address], 05/15/2024 06:07:56 05/15/19 25 05/15/2024 COMP. METAB OLIC PANEL (14) sodium 141 mmol/ L 134-14 4 normal Not Available [facility] ([facility]) [address] [place], [address], 05/15/2024 06:07:56 05/15/19 25 05/15/2024 COMP. METAB OLIC PANEL (14) potassium 4.0 mmol/ L 3.5-5. 2 normal Not Available [facility] ([facility]) [address] [place], [address], 05/15/2024 06:07:56 05/15/19 25 05/15/2024 COMP. METAB OLIC PANEL (14) chloride 99 mmol/ L 96-106 normal Not Available [facility] ([facility]) [address] [place], [address], 05/15/2024 06:07:56 05/15/19 25 05/15/2024 COMP. METAB OLIC PANEL (14) carbon dioxide, total 16 mmol/ L 20-29 below low normal Not Available [facility] ([facility]) [address] [place], [address], 05/15/2024 06:07:56 05/15/19 25 05/15/2024 COMP. METAB OLIC PANEL (14) calcium 9.5 mg/dL 8.7-10 .2 normal Not Available [facility] ([facility]) [address] [place], [address], 05/15/2024 06:07:56 05/15/19 25 05/15/2024 COMP. METAB OLIC PANEL (14) protein, total 5.9 g/dL 6.0-8. 5 below low normal Not Available [facility] ([facility]) [address] [place], [address], 05/15/2024 06:07:56 05/15/19 25 05/15/2024 COMP. METAB OLIC PANEL (14) albumin 3.9 g/dL 3.8-4. 9 normal Not Available [facility] ([facility]) [address] [place], [address], 05/15/2024 06:07:56 05/15/19 25 05/15/2024 COMP. METAB OLIC PANEL (14) globulin, total 2.0 g/dL 1.5-4. 5 Not Available [facility] ([facility]) [address] [place], [address], 05/15/2024 06:07:56 05/15/19 25 05/15/2024 COMP. METAB OLIC PANEL (14) bilirubin, total 1.7 mg/dL 0.0-1. 2 above high normal Not Available [facility] ([facility]) [address] [place], [address], 05/15/2024 06:07:56 05/15/19 25 05/15/2024 COMP. METAB OLIC PANEL (14) alkaline phosphatase 87 IU/L 44-121 normal Not Available [facility] ([facility]) [address] [place], [address], 05/15/2024 06:07:56 05/15/19 25 05/15/2024 COMP. METAB OLIC PANEL (14) AST (SGOT) 52 IU/L 0-40 above high normal Not Available [facility] ([facility]) [address] [place], [address], 05/15/2024 06:07:56 05/15/19 25 05/15/2024 COMP. METAB OLIC PANEL (14) ALT (SGPT) 57 IU/L 0-32 above high normal Not Available [facility] ([facility]) [address] [place], [address], 05/15/2024 06:07:56 05/15/19 25 05/15/2024 HEMOG LOBIN A1C hemoglobin A1C 6.0 % 4.8-5. 6 above high normal Predi abete s: 5.7 - 6.4 Diabe rohit: >6.4 Glyce brandon contr ol for adult s with diabe rohit: <7.0 Not Available [facility] ([facility]) [address] [place], [address], 05/15/2024 06:07:57 05/15/19 25 05/15/2024 VITAM IN D, 25-HY DROXY vitamin D, 25-hydroxy 17.1 NG/mL 30.0-1 00.0 below low normal Vitam in D defic iency has been defin ed by the Insti tute of Medic ine and an Endoc rine Socie ty pract ice guide line as a level of serum 25-OH vitam in D less than 20 ng/mL (1,2) . The Endoc rine Socie ty went on to furth er defin e vitam in D insuf ficie ncy as a level betwe en 21 and 29 ng/mL (2). 1. IOM (Inst itute of Medic ine). 2009. Dieta ry refer ence intak es for calci um and D. Carol de la cruz [place]: The Natio nal [facility] Press . 2. Orquidea k MF, Binkl ey [place], Bisch off-F errar i QUISPE, et al. Evalu ation , treat ment, and preve ntion of vitam in D defic iency : an Endoc rine Socie ty clini ishan pract ice guide line. JCEM. 2010; 96(7) :1911 -30. Not Available [facility] ([facility]) [address] [place], [address], 05/15/2024 06:07:57 05/15/1905/15/2024 TSH RFX ON ABNOR MAL TO FREE T4 TSH 4.450 uIU/m L 0.450- 4.500 normal Not Available [facility] ([facility]) [address] [place], [address], 05/15/2024 06:07:57 Result Notes None recorded. Problems Name Problem SNOMED Code Status Onset Date Resolution Date Notes Provider Name and Address Organization Details Recorded Time Major depressi ve disorder 104078358 Completed 11/10/2022 Delores Hou PA-C [address] [facility] [address], [place], [address] , [facility] [place] 3 12:41:37 Eruption 346664649 Active Not Available [facility] 3 19:36:06 Acute vaginiti s 82326374 Completed 09/19/2016 JUSTIN Sena, [facility] [place] 7 15:31:13 Disease of liver 107028279 Completed 01/21/2014 Ti huff [facility] [place] 6 15:47:34 Acute sinusiti s 16829536 Completed 03/27/2014 Ti huff, [facility] [place] 6 15:47:34 Injury of liver 99682282 Completed 11/10/2022 likely due to doxycycl ine Delores Hou PA-C [address], [place], [address] , [facility] 3 12:41:28 Sprain of shoulder rotator cuff 29105380264 4 Active Not Available [facility] 3 19:36:06 Macromas tia 038095338 Active Not Available [facility] 3 19:36:06 Intertri go 29680496 Completed 06/05/2018 Henny Hou PA-C [address] [facility] [address], [place], [address] , [facility] 9 14:06:57 Post-tra umatic stress disorder 68439065 Active Not Available [facility] 3 19:36:06 Ex-smoke r 5209029 Active Not Available [facility] 3 19:36:06 Nausea 884594618 Completed [facility]24/2016 [facility] 7 10:27:58 Candidal paronych ia 019602766 Active Not Available [facility] 3 19:36:05 Localize d anaphyla xis 96658402 Active Not Available [facility] 3 19:36:05 Type 2 diabetes mellitus without complica tion 426692511 Completed 11/10/2022 Delores Hou PA-C [address] [facility] [address], [place], [address] , [facility] 3 12:41:44 Cyst of ovary 24060876 Active Not Available [facility] 3 19:36:06 Gastroes ophageal reflux disease 255957898 Active Not Available [facility] 3 19:36:05 Recurren t urinary tract infectio n 977785936 Completed 09/19/2016 JUSTIN Sena, [facility] [place] 7 15:33:15 Ganglion of foot 572076255 Active Not Available [facility] 3 19:36:06 Kidney stone 12753306 Active Not Available [facility] 3 19:36:06 Incision al hernia 330518825 Active Not Available [facility] 3 19:36:05 Hyperten sive disorder 89374610 Completed 11/10/2022 Delores Hou PA-C [address], [place], [address] , [facility] 3 12:41:16 Angiolip americo 389657949 Active Not Available [facility] 3 19:36:06 Osteoart hritis 213801669 Active Not Available [facility] 3 19:36:06 History of diabetes mellitus 460219330 Completed 11/08/2022 Delores Hou PA-C [address], [place], [address] , [facility] 3 10:35:23 Hyperlip idemia 90355898 Active Not Available [facility] 3 19:36:06 Diarrhea 81981181 Active Not Available [facility] 3 19:36:06 Partial nephrect liz Active Not Available [facility] 3 19:36:06 Allergy Completed 06/05/2018 Henny Hou PA-C [address], [place], [address] , [facility] 9 14:07:12 Allergic rhinitis 33362597 Active Not Available [facility] 3 19:36:06 Allergic urticari a 77327757 Active Not Available [facility] 3 19:36:06 Anxiety state 399699768 Active Not Available [facility] 3 19:36:05 Bipolar disorder 23433330 Active Not Available [facility] 3 19:36:05 History of depressi on 156175766 Completed 11/19/2013 Ti huff, [facility] [place] 6 15:47:34 Diabetes mellitus 98168643 Completed 03/28/2018 Delores Hou PA-C [address] [address], [place], [address] , [facility] 9 14:01:45 Elevated blood-pr essure reading without diagnosi s of hyperten nisa 495571979 Completed 03/27/2014 Ti huff, [facility] [place] 6 15:47:34 Hypertro phic conditio n of skin 81055988 Active Not Available [facility] 3 19:36:05 Tobacco user 239743600 Completed 03/27/2014 Ti huff [facility] [place] 6 15:47:34 History of clinical finding in subject 837481274 Completed 03/27/2014 Ti huff, [facility] [place] 6 15:47:34 Adult health examinat ion Completed 03/27/2014 Ti huff, [facility] [place] 6 15:47:34 Essentia l hyperten nisa 96114243 Completed 11/10/2022 Delores Hou PA-C [address] [facility] [address], [place], [address] , [facility] 3 12:40:45 Erythema tous conditio n Completed 06/05/2018 Henny Hou PA-C [address], [place], [address] , [facility] 9 14:06:49 Hypertro phy of breast 606453559 Active Not Available [facility] 3 19:36:06 Obesity 744595389 Completed 08/26/2020 Removal Reason: Changing to Severe Obesity MD daria Bella, [facility] [place] 1 13:08:36 History of psychiat keith disorder [id number] Completed 03/27/2014 Ti huff, [facility] [place] 6 15:47:34 Chronic sinusiti s 25565421 Completed 03/27/2014 Delores Hou PA-C [address] [facility] [address], [place], [address] , [facility] 4 14:30:03 Administ ration of diphther ia, pertussi s, and tetanus vaccine Completed 03/27/2014 Ti huff, [facility] [place] 6 15:47:34 Pain in thoracic spine 234150932 Active Not Available Formerly [facility] 3 19:36:05 Tobacco dependen ce syndrome [id number] Completed 03/27/2014 Ti huff, [facility] [place] 6 15:47:34 Urolith Active Not Available [facility] 3 19:36:06 Urticari a 182624510 Active Not Available Formerly [facility] 3 19:36:05 Body mass index 30+ - obesity 629281893 Completed 200411/10/2022 Delores Hou PA-C [address] [facility] [address], [place], [address] , [facility] 3 12:40:37 Vertigo 611919123 Active 2006 Not Available [facility] 3 19:36:06 Intestin al infectio us disease 428152348 Completed 201210/06/2013 IMPRESSI ON: KEEP DRINKING FLUIDS. IF GETS TOO HYDRATED GO TO ER.; RECORDED 08/09/19 13 10:57AM BY MARY ANNE SARABIA MA, ANNOTATI ON/ADDEN DUM Ti huff, [facility] [place] 6 15:47:34 Intestin al infectio us disease 533447735 Completed 201209/09/2013 IMPRESSI ON: KEEP DRINKING FLUIDS. IF GETS TOO HYDRATED GO TO ER.; RECORDED 08/09/19 13 10:57AM BY MARY ANNE SARABIA MA, FLEX ON/ADDEN DUM Ti D'Alessand ro null, [facility] [place] 6 15:47:34 Follow-u p encounte r Completed 201210/06/2013 RECORDED 12/08/19 13 10:30AM BY MARY ANNE SARABIA MA, FLEX ON/ADDEN DUM Ti D'Alessand ro null, [facility] [place] 6 15:47:34 Malaise and fatigue 897531106 Completed 201210/06/2013 RECORDED 12/08/19 13 10:30AM BY MARY ANNE SARABIA MA, FLEX ON/ADDEN DUM Ti D'Alessand ro null, [facility] [place] 6 15:47:34 Acute and subacute liver necrosis [id number] Completed 201210/06/2013 RECORDED 12/08/19 13 10:30AM BY MARY ANNE SARABIA MA, YANETHATI ON/ADDEN DUM Ti D'Alessand ro null, [facility] [place] 6 15:47:34 Shoulder joint pain [id number] Completed 201210/06/2013 STORY: S/P CUFF REPAIR/K WILL , USES [facility]; RECORDED 12/08/19 13 10:30AM BY MARY ANNE SARABIA MA, FLEX ON/ADDEN DUM Ti D'Alessand ro null, [facility] [place] 6 15:47:34 Follow-u p encounte r Completed 201209/09/2013 RECORDED 12/08/19 13 10:30AM BY MARY ANNE SARABIA MA, FLEX ON/ADDEN DUM Ti D'Alessand ro null, [facility] [place] 6 15:47:34 Malaise and fatigue 986093210 Completed 201209/09/2013 RECORDED 12/08/19 13 10:30AM BY MARY ANNE SARABIA MA, ANNOTATI ON/ADDEN DUM Ti MunozAlessand ro null, [facility] [place] 6 15:47:34 Acute and subacute liver necrosis 769848112 Completed 201209/09/2013 RECORDED 12/08/19 13 10:30AM BY MARY ANNE SARABIA MA, ANNOTATI ON/ADDEN DUM Ti Aguilarand ro null, [facility] [place] 6 15:47:34 Shoulder joint pain 093352856 Completed 201209/09/2013 STORY: S/P CUFF REPAIR/K WILL , USES [facility]; RECORDED 12/08/19 13 10:30AM BY MARY ANNE SARABIA MA, ANNOTATI ON/ADDEN DUM Ti Pachecossand ro null, [facility] [place] 6 15:47:34 Influenz a vaccine needed [id number] 06 Completed 201210/06/2013 RECORDED 01/30/20 13 2:31PM BY REBECCA OCONNELL MA, NURSE VISIT Ti Vallecillo ro null, [facility] [place] 6 15:47:34 Influenz a vaccine needed [id number] 06 Completed 201209/09/2013 RECORDED 01/30/20 13 2:31PM BY REBECCA OCONNELL MA, NURSE VISIT Ti Vallecillo ro null, [facility] [place] 6 15:47:34 Candidal vulvovag initis 09054481 Completed 201310/06/2013 RECORDED 04/04/19 14 2:03PM BY MARY ANNE SARABIA MA, ANNOTATI ON/ADDEN DUM Ti Pachecossand ro null, [facility] [place] 6 15:47:34 Tobacco user [id number] Completed 201309/09/2013 RECORDED 04/04/19 14 2:03PM BY MARY ANNE SARABIA MA, ANNOTATI ON/ADDEN DUM Ti Pachecossand ro null, [facility] [place] 6 15:47:34 Candidal vulvovag initis 13421280 Completed 201309/09/2013 RECORDED 04/04/19 14 2:03PM BY MARY ANNE SARABIA MA, ANNOTATI ON/LAZARO huff, [facility] [place] 6 15:47:34 Constipa tion 47452290 Active 2018 Not Available [facility] 3 19:36:05 Cervical disc disorder with radiculo omer 789686900 Active 2018 Not Available [facility] 3 19:36:05 Irritabl e bowel syndrome 57980749 Active 2018 Not Available [facility] 3 19:36:05 History of bariatri c surgical procedur e 190385483 Active 2018 Not Available [facility] 3 19:36:06 Severe obesity 24491892483 104 Completed 202011/10/2022 Delores Hou PA-C [address], [place], [address] , [facility] 3 12:40:23 Renal disorder due to type 2 diabetes mellitus 157162289 Active 2022 Not Available [facility] 3 19:36:06 Chronic kidney disease stage 2 790097588 Active 2022 Not Available [facility] 3 19:36:06 Hyperten sive renal disease 41300653 Active 2022 Not Available [facility] 3 19:36:06 Hemipleg ia and/or hemipare sis followin g stroke 71770412520 107 Active 2023 Delores Hou PA-C [address], [place], [address] , [facility] 4 11:52:06 Tension- type headache 052834655 Completed 202306/26/2023 Delores Hou PA-C [address], [place], [address] , [facility] 4 14:30:06 Fransisco robertson 52739347 Active 2023 CHRYSTAL Ventura [address] [facility] [address], [place], [address] , [facility] 4 10:13:33 Candidal intertri go 763813404 Active 2023 CHRYSTAL Ventura [address] [facility] [address], [place], [address] , [facility] 4 10:16:36 Headache 56668080 Active 2023 Delores Hou PA-C [address] [facility] [address], [place], [address] , [facility] 4 14:02:59 Body mass index 40+ - severely obese 445149235 Active 2023 Delores Hou PA-C [address] [address], [place], [address] , [facility] 4 14:15:38 Chronic sinusiti s 29311907 Active 2023 Delores Hou PA-C [address] [address], [place], [address] , [facility] 4 14:30:02 Tension- type headache 305831632 Active 2023 Delores Hou PA-C [address] [address], [place], [address] , [facility] 4 14:30:06 Hypothyr oidism 32873256 Active 2024 Henny Hou PA-C [address] [address], [place], [address] , [facility] 5 11:18:17 Vitamin D deficien cy 43956992 Active 2024 Delores Hou PA-C [address] [address], [place], [address] , [facility] 5 12:30:52 Notes:Some problems listed i n Document: #[id number] could not be added to this patient's chart. Please review this document and add these problems to the patient's chart manually as needed. Problem Notes None recorded. Procedures Surgical History Date Name Laterality Status Provider Name and Address Organization Details Recorded Time 021 ultrasonography of bilateral breasts completed Donna Hwang [facility] [place] 02/23/2021 11:12:29 021 Most Recent Mammogram completed Donna Hwang [facility] [place] 03/31/2020 13:39:03 021 Mammogram Diagnostic Bilateral completed Donnacollin Hwang [facility] [place] 03/31/2020 13:38:47 020 Mammogram one breast completed Yajaira Jennings [facility] [place] 08/27/2019 14:06:20 019 fusion of joint of cervical spine by anterior approach for deformity of cervical spine completed Delores Hou PA-C [address] [facility], [place], [address], [facility] 01/13/2019 17:34:49 018 Date of Last Colonoscopy completed Luanne Rossi [facility] [place] 02/16/2018 11:23:40 018 Colonoscopy completed Delores Hou PA-C [address] [facility], [place], [address], [facility] 03/28/2018 13:56:36 016 Date of Last Pap Smear completed Lia Newton [facility] [place] 12/15/2016 14:15:45 015 mammoplasty completed Rebecca franco [place] [facility] [place] 02/10/2020 09:43:57 015 Breast Biopsy completed Julio Richard [facility] [place] 07/19/2015 16:17:54 014 Needle biopsy of liver perq completed Julio Richard [facility] [place] 07/19/2015 16:26:04 012 Cholecystectomy completed Ruizlakeisha Richard [facility] [place] 07/19/2015 16:26:04 011 Bariatric Surgery completed Marii [place] [facility] 03/27/2014 09:20:37 011 Hernia Repair completed Marii Saleh [place] [facility] [place] 03/27/2014 09:20:37 011 laparoscopic sleeve gastrectomy completed Rebecca franco [place] [facility] [place] 02/10/2020 09:44:20 Imaging Results None recorded. Procedure Notes None recorded. Medical Equipment None Reported. Allergies Allergen ID Allergen Name Allergen Category Reaction Reaction Severity Criticality Documentation Date Start Date Code Code System Note Provider Name and Address Organization Details Recorded Time 46656 Substance with sulfonami de structure and antibacte rial mechanism of action (substanc e) medicatio n hives itching other severe severe severe Not available 11/19/2013 15189 8003 SNOMED Marii Delfino JUSTIN daria [facility] [place] 5 09:19:23 38082 doxycycli ne Not available other severe Not available 01/07/20142013 3640 RxNorm hepat itis CEE Shetty [facility] [place] 4 10:25:48 50114 Dilaudid medicatio n irregular heart rate moderate Not available 03/27/2014 42192 3 RxNorm Marii huff [facility] [place] 5 09:19:22 17410 Tegaderm medicatio n Not available Not available Not available 09/20/2015 Patie nt uses IV300 0 non tegad erm while inpat ient Robel huff [facility] [place] 6 11:08:56 87896 Tylenol medicatio n Not available Not available Not available 10/03/2017 3 RxNorm Marii huff [facility] [place] 8 11:45:59 83479 sulfadiaz ine medicatio n Not available Not available Not available 05/06/2019 45898 RxNorm Bree Brice, [employer] [facility] 4 09:14:27 07028 acetamino phen medicatio n Not available Not available Not available 05/06/2019 161 RxNorm Yajaira Money [facility] 0 11:34:37 42474 hydromorp anika medicatio n Not available Not available Not available 05/06/2019 3423 RxNorm Yajaira Money [facility] 0 11:34:37 12292 Lamictal medicatio n other moderate low 04/09/2023 57431 2 RxNorm cause d suici tray tende ncies Bree Brice, [employer] [facility] 4 09:13:38 5021 Adhesive agent (substanc e) environme nt,medica tion hives itching other rash severe severe Not available severe Not available 09/09/20132013 21554 0007 SNOMED Marii Saleh MA [facility] 5 09:19:23 5022 penicilli n V potassium medicatio n dizziness rash respirato ry distress severe severe moderate Not available 09/09/20132013 55122 5 RxNorm Marii Saleh MA [facility] 5 09:19:23 Medications Name Sig Start Date Stop Date Status Note LastModified by Organization Details LastModified Time Prescript ion - Prior Authoriza tion Request 09/08 completed Not Available Not Available Not Available thang abreu misc active Not Available Not Available Not Available carisopro dol 350 mg tablet 12/19 completed Not Available Not Available Not Available cyclobenz aprine 10 mg tablet 03/09 completed Not Available Not Available Not Available Mirena 21 mcg/24 hr (up to 8 years) 52 mg intrauter ine device Take 1 device every day by intraute rine route around the clock. active Not Available Not Available No t Available Miralax 17 gram/dose oral powder Take 17 g 3 times a day by oral route as directed for 30 days. 11/18 completed Not Available Not Available Not Available fluconazo le 100 mg tablet Take 1 tablet every day by oral route for 10 days. active Not Available Not Available No t Available lamotrigi ne 150 mg tablet Take 2 tablets every day by oral route. 03/14 completed Not Available Not Available Not Available metformin 500 mg tablet Take 1 tablet twice a day by oral route for 30 days. 07/18 completed Not Available Not Available Not Available terconazo le 0.4 % vaginal cream Insert 1 applicat orful every day by vaginal route as directed for vaginiti s for 7 days. 10/03 completed Not Available Not Available Not Available Benadryl 50 mg capsule Take 1 capsule as needed by oral route as directed for 30 days. 09/19 completed Not Available Not Available Not Available atorvasta tin 80 mg tablet TAKE 1 TABLET BY MOUTH EVERY DAY active Not Available Not Available No t Available Colace 100 mg capsule Take 1 capsule twice a day by oral route as needed for 30 days. active Not Available Not Available No t Available clonidine HCl 0.1 mg tablet TAKE ONE TAB BY MOUTH IN THE MORNING, 1 TAB AT NOON, AND 2 TABS AT NIGHT active Not Available Not Available No t Available prednison e 10 mg tablet 40mg Po x 2 days, 30mg PO x 2 days, 20mg PO x 2 days, 10mg PO x 2 days. 11/27 completed Not Available Not Available Not Available doxycycli ne hyclate 100 mg capsule TWO TIMES DAILY 12/09 completed Not Available Not Available Not Available Mylanta Maximum Strength 400 mg-400 mg-40 mg/5 mL oral suspensio n Take 15 mL as needed by oral route. 04/10 completed Not Available Not Available Not Available tizanidin e 2 mg tablet 10/02 completed Not Available Not Available Not Available clindamyc in HCl 300 mg capsule 09/19 completed Not Available Not Available Not Available loperamid e 2 mg capsule TAKE 1 CAPSULE BY MOUTH TWICE A DAY NEEDED FOR LOOSE STOOL active Not Available Not Available No t Available trazodone 50 mg tablet TAKE 1 - 3 TABLETS BY MOUTH AT BEDTIME NEEDED FOR INSOMNIA 11/04 completed Not Available Not Available Not Available azithromy shiloh 250 mg tablet TAKE 2 TABLETS BY MOUTH TODAY, THEN TAKE 1 TABLET DAILY FOR 4 DAYS DIRECTED 03/20 completed Not Available Not Available Not Available ibuprofen 800 mg tablet Take 1 tablet 3 times a day by oral route with meals for 30 days. 03/14 completed Not Available Not Available Not Available ofloxacin 0.3 % eye drops 11/08 completed Not Available Not Available Not Available tizanidin e 4 mg tablet 11/15 completed Not Available Not Available Not Available fluconazo le 150 mg tablet Take 1 tablet every day by oral route as directed for yeast vaginiti s. May repeat after 72 hours as needed. for 1 day. 12/15 completed Not Available Not Available Not Available benzonata te 200 mg capsule Take 1 capsule 3 times a day by oral route as directed for 10 days. 10/03 completed Not Available Not Available Not Available tretinoin 0.025 % topical cream APPLY TO FACE AT BEDTIME EVERY THIRD NIGHT X1 WEEK EVERY OTHER NIGHT X1 WEEK THEN NIGHTLY active Not Available Not Available No t Available senna 8.6 mg tablet Take 2 tablets twice a day by oral route as needed. 11/27 completed Not Available Not Available Not Available meloxicam 15 mg tablet Take 1 tablet every day by oral route as directed for 15 days. 10/02 completed Not Available Not Available Not Available sucralfat e 1 gram tablet Take 1 tablet 4 times a day by oral route as directed . 11/18 completed Not Available Not Available Not Available FreeStyle Lancets 28 gauge USE TO TEST BLOOD SURGES THREE TIMES DAILY active Not Available Not Available No t Available sumatript an 25 mg tablet TAKE ONE TABLET BY MOUTH AT ONSET OF MIGRAINE , MAY REPEAT ONCE AFTER 2 HOURS active Not Available Not Available No t Available ondansetr on HCl 4 mg tablet TAKE 1 TABLET BY MOUTH EVERY 8 HOURS NEEDED FOR NAUSEA/V OMITING FOR 10 DAYS 11/08 completed Not Available Not Available Not Available prednison e 20 mg tablet Take 2 tablets every day by oral route as directed for 5 days. 11/27 completed Not Available Not Available Not Available clonazepa m 0.5 mg tablet Take 1 tablet twice a day by oral route as needed. 03/20 completed Not Available Not Available Not Available gabapenti n 400 mg capsule TAKE 3 CAPSULES BY MOUTH AT BEDTIME active Not Available Not Available No t Available clonazepa m 1 mg tablet TAKE 1 TABLET BY MOUTH THREE TIMES A DAY active Not Available Not Available No t Available methylpre dnisolone 4 mg tablet 10/03 completed Not Available Not Available Not Available clindamyc in HCl 150 mg capsule 09/08 completed Not Available Not Available Not Available meclizine 12.5 mg tablet Take 2 tablets 3 times a day by oral route. active Not Available Not Available No t Available Zyrtec 10 mg tablet Take 1 tablet every day by oral route as needed for 90 days. 04/09 completed Not Available Not Available Not Available fluocinon joslyn 0.05 % topical ointment 09/08 completed Not Available Not Available Not Available fexofenad ine 180 mg tablet Take 1 tablet every day by oral route. 02/09 completed Not Available Not Available Not Available ciproflox acin 250 mg tablet Take 1 tablet twice a day by oral route for 3 days. active Not Available Not Available No t Available sulfameth oxazole 800 mg-trimet hoprim 160 mg tablet Take 1 tablet twice a day by oral route for 7 days. active Not Available Not Available No t Available peg-elect rolyte solution 420 gram oral solution active Not Available Not Available Not Available omeprazol e 40 mg capsule,d elayed release TAKE 1 CAPSULE BY MOUTH EVERY DAY 11/08 completed Not Available Not Available Not Available tramadol 50 mg tablet Take 1 tablet twice a day by oral route as needed for 30 days. 07/18 completed Not Available Not Available Not Available bupropion HCl SR 100 mg tablet,12 hr sustained -release Take 1 tablet every day by oral route as directed for 30 days. 01/16 completed Not Available Not Available Not Available Cholestyr amine Light 4 gram powder for suspensio n in a packet MIX 1 PACKET (4 GRAMS) IN LIQUID AND DRINK 3 TIMES A DAY FOR 30 DAYS 11/08 completed Not Available Not Available Not Available lidocaine -prilocai ne 2.5 %-2.5 % topical cream APPLY 1 APPLICAT ION ON THE SKIN DIRECTED 11/08 completed Not Available Not Available Not Available lamotrigi ne 25 mg tablet Take 2 tablets every day by oral route for 90 days. 03/14 completed Not Available Not Available Not Available pantopraz ole 20 mg tablet,de layed release Take 1 tablet twice a day by oral route. 03/20 completed Not Available Not Available Not Available Nexium 20 mg capsule,d elayed release 07/20 completed Not Available Not Available Not Available oxycodone -acetamin ophen 5 mg-325 mg tablet Take by oral route for 4 days. 07/18 completed Not Available Not Available Not Available clonidine HCl 0.2 mg tablet Take by oral route for 30 days. 12/15 completed Not Available Not Available Not Available famotidin e 20 mg tablet Take 1 tablet twice a day by oral route before meals for 30 days. 01/16 completed Not Available Not Available Not Available methocarb rayshawn 750 mg tablet 11/08 completed Not Available Not Available Not Available Imodium A-D 2 mg tablet Take 2 tablets every day by oral route as needed for 90 days. 11/08 completed Not Available Not Available Not Available trazodone 100 mg tablet active Not Available Not Available Not Available dicyclomi ne 20 mg tablet 03/09 completed Not Available Not Available Not Available ciproflox acin 0.3 % eye drops INSTILL 1 DROP INTO AFFECTED EYE(S) BY OPHTHALM IC ROUTE EVERY 2 HOURSWHI LE AWAKE FOR 2 DAYS THEN 1 DROP EVERY 4 HRS WHILE AWAKE FOR 5 DAYS 02/09 completed Not Available Not Available Not Available lorazepam 2 mg tablet 09/19 completed Not Available Not Available Not Available diazepam 2 mg tablet 10/02 completed Not Available Not Available Not Available colesevel am 625 mg tablet Take 1 tablet every day by oral route for 8 days. 02/09 completed Welchol Not Available Not Available Not Available benzonata te 100 mg capsule TAKE 1 CAPSULE BY MOUTH 3 TIMES A DAY FOR 5 DAYS 11/08 completed Not Available Not Available Not Available Vitamin C 100 mg tablet Take 1 tablet every day by oral route. 03/14 completed Not Available Not Available Not Available dexametha sone 2 mg tablet 11/15 completed Not Available Not Available Not Available econazole nitrate 1 % topical cream APPLY TO THE AFFECTED AND SURROUND ING AREAS OF SKIN BY TOPICAL ROUTE 2 TIMES PER DAY as needed 10/02 completed Not Available Not Available Not Available cephalexi n 500 mg capsule 07/18 completed Not Available Not Available Not Available pantopraz ole 40 mg tablet,de layed release take one tablet daily active Not Available Not Available No t Available biotin 10,000 mcg capsule Take 1 capsule every day by oral route. 03/09 completed Not Available Not Available Not Available IBU 400 mg tablet Take 1 tablet every 8 hours by oral route as needed. 06/24 completed Not Available Not Available Not Available metformin 1,000 mg tablet Take 1 tablet every day by oral route for 90 days. 02/04 completed Not Available Not Available Not Available ranitidin e 150 mg tablet TAKE 1 TABLET BY MOUTH TWICE A DAY NEEDED 10/13 completed Not Available Not Available Not Available olopatadi ne 0.1 % eye drops 10/03 completed Not Available Not Available Not Available lidocaine 5 % topical patch 11/08 completed Not Available Not Available Not Available clonazepa m 2 mg tablet TAKE 1/2 TABLET BY MOUTH FOUR TIMES A DAY 03/09 completed Not Available Not Available Not Available metronida zole 0.75 % topical cream APPLY TO AFFECTED AREAS ON FACE ONCE DAILY active Not Available Not Available No t Available indometha shiloh 25 mg capsule TAKE 1 CAPSULE BY MOUTH 3 TIMES A DAY WITH FOOD OR MILK active Not Available Not Available No t Available hydrochlo rothiazid e 12.5 mg capsule DAILY 11/20 completed Not Available Not Available Not Available gabapenti n 300 mg capsule TAKE 2 CAPSULES BY MOUTH AT BEDTIME MUST FILL AT [facility] 11/08 completed Not Available Not Available Not Available omeprazol e 20 mg capsule,d elayed release TAKE ONE CAPSULE TWICE DAILY 01/28 completed diarrhea Not Available Not Available Not Available aspirin 81 mg chewable tablet CHEW ONE TABLET BY MOUTH DAILY AT 9AM EVERY DAY active Not Available Not Available No t Available morphine ER 15 mg tablet,ex tended release One tablet twice daily as directed x 30 days 11/18 completed Not Available Not Available Not Available hydrochlo rothiazid e 25 mg tablet active Not Available Not Available Not Available mupirocin 2 % topical ointment APPLY A SMALL AMOUNT TO THE AFFECTED AREA BY TOPICAL ROUTE 3 TIMES PER DAY 2023 active Not Available Not Available Not Avai lable diclofena c sodium 50 mg tablet,de layed release TAKE 1 TABLET BY MOUTH TWICE A DAY 10/02 completed Not Available Not Available Not Available gabapenti n 100 mg capsule TAKE 1 CAPSULE BY MOUTH TWICE A DAY active Not Available Not Available No t Available nystatin 100,000 unit/gram topical powder Apply 1 applicat ion twice a day by topical route as needed for 10 days. 03/20 completed Not Available Not Available Not Available lorazepam 1 mg tablet Take 1 tablet by oral route for 15 days. 10/03 completed Not Available Not Available Not Available Wellbutri n 100 mg tablet Take 1 tablet every day by oral route. 12/19 completed Not Available Not Available Not Available epinephri ne 0.3 mg/0.3 mL injection , auto-inje ctor INJECT 1 PEN INTRAMUS CULARLY DIRECTED NEEDED active Not Available Not Available No t Available ibuprofen 600 mg tablet 09/19 completed Not Available Not Available Not Available levofloxa shiloh 500 mg tablet TAKE 1 TABLET EVERY 24 HOURS BY ORAL ROUTE DIRECTED FOR 7 DAYS. 04/23 completed Not Available Not Available Not Available levofloxa shiloh 750 mg tablet TAKE 1 TABLET BY MOUTH EVERY DAY DIRECTED FOR 5 DAYS active Not Available Not Available No t Available zolpidem 10 mg tablet active Not Available Not Available Not Available methylpre dnisolone 4 mg tablets in a dose pack 11/08 completed Not Available Not Available Not Available pioglitaz one 30 mg tablet Take 1 tablet every day by oral route for 90 days. 02/03 completed Not Available Not Available Not Available ketoconaz ole 2 % topical cream APPLY TOPICALL Y EVERY DAY DIRECTED FOR 14 DAYS active Not Available Not Available No t Available hydroxyzi ne HCl 10 mg tablet Take 1 tablet every 3-4 hours by oral route as needed. 12/13 completed Not Available Not Available Not Available ondansetr on 4 mg disintegr ating tablet PLACE 1 TABLET BY TRANSLIN GUAL ROUTE 3 TIMES A DAY NEEDED FOR 10 DAYS active Not Available Not Available No t Available fluticaso ne propionat e 50 mcg/actua tion nasal spray,krysta pension USE 1-2 SPRAYS INTO EACH NOSTRIL ONCE A DAY DIRECTED 2023 active Not Available Not Available Not Avai lable metformin ER 500 mg tablet,ex tended release 24 hr active Not Available Not Available Not Available colestipo l 1 gram tablet Take 3 tablets twice a day by oral route. 03/20 completed Not Available Not Available Not Available doxycycli ne hyclate 100 mg tablet 07/18 completed Not Available Not Available Not Available naproxen 500 mg tablet Take 1 tablet twice a day by oral route as needed. 01/05 completed Not Available Not Available Not Available oxycodone 5 mg tablet 11/15 completed Not Available Not Available Not Available hydroxyzi ne pamoate 25 mg capsule Take 1 capsule every day by oral route as needed for 30 days. 01/06 completed Not Available Not Available Not Available Calcium-5 00 500 mg (as calcium carbonate 1,250 mg) tablet Take 1 tablet every day by oral route. 09/19 completed Not Available Not Available Not Available bupropion HCl SR 200 mg tablet,12 hr sustained -release Take 2 tablets twice a day by oral route. 10/24 completed Not Available Not Available Not Available escitalop piotr 10 mg tablet 07/20 completed Not Available Not Available Not Available escitalop piotr 20 mg tablet DAILY active RECORDED 07/09/19 13 10:42AM BY LISANDRO SIMON, ANNOTATI ON/LAZARO DUM;PSYC H Not Available Not Available Not Available Saline Nasal 0.65 % spray aerosol INSTILL 1 SPRAY TWICE DAILY BY NASAL ROUTE FOR 30 DAYS active Not Available Not Available No t Available cyclobenz aprine 5 mg tablet TAKE 1 TABLET BY MOUTH EVERY DAY AT BEDTIME NEEDED active Not Available Not Available No t Available psyllium husk 0.52 gram capsule Take 2 capsules 3 times a day by oral route for 90 days. 11/08 completed Not Available Not Available Not Available cholestyr amine (with sugar) 4 gram oral powder Take 1 scoop 3 times a day by oral route. 03/20 completed Not Available Not Available Not Available cholestyr amine-asp artame 4 gram oral powder for susp in a packet USE 1 PACKET (4 GM) BY MOUTH 3 TIMES A DAY,X30 DAYS active Not Available Not Available No t Available cholestyr amine (with sugar) 4 gram powder for susp in a packet MIX 4 GRAMS IN WATER 3 TIMES A DAY X 30 DAYS (ORANGE FLAVOR DO NOT GIVE LITE) NEEDED active Not Available Not Available No t Available omeprazol e magnesium 20 mg tablet,de layed release Take 60 mg by oral route. 11/08 completed Not Available Not Available Not Available nitrofura ntoin monohydra te/macroc rystals 100 mg capsule Take 1 capsule twice a day by oral route for 7 days. 01/16 completed Not Available Not Available Not Available BD Ultra-Fin e Mini Pen Needle 31 gauge x 16 USE DIRECTED FOR ONCE DAILY INJECTIO NS. E11 65 active Not Available Not Available No t Available loperamid e 1 mg/7.5 mL oral liquid TAKE 7.5ML BY MOUTH TWICE A DAY NEEDED FOR LOOSE STOOLS FOR UP TO 10 DAYS *WILL HAVE EXTRA 02/09 completed Not Available Not Available Not Available chlorhexi dine gluconate 0.12 % mouthwash 10/03 completed Not Available Not Available Not Available clonidine TWO TIMES DAILY 12/11 completed Not Available Not Available Not Available Flonase EACH NOSTRIL DAILY 12/19 completed Not Available Not Available Not Available omeprazol e TWO TIMES DAILY 12/19 completed Not Available Not Available Not Available hydroxyzi ne HCl EVERY FOUR HOURS, NEEDED 10/09 completed Not Available Not Available Not Available Fish Oil 09/19 completed Not Available Not Available Not Available Metamucil 02/09 completed Not Available Not Available Not Available Calcium 500 take 1 tab daily po 09/19 completed Not Available Not Available Not Available Multivita mins 1 tablet po daily 09/19 completed Not Available Not Available Not Available ProAir HFA 90 mcg/actua tion aerosol inhaler Inhale 2 puffs every 4 hours by inhalati on route as directed for 30 days. 12/15 completed Not Available Not Available Not Available metformin ER 500 mg 24 hr tablet,ex tended release (gastric retention ) Take 2 tablets twice a day by oral route as directed for 90 days. 03/01 completed Not Available Not Available Not Available Januvia 100 mg tablet TAKE 1 TABLET BY MOUTH EVERY DAY 11/08 completed Not Available Not Available Not Available paliperid one ER 3 mg tablet,ex tended release 24 hr 10/03 completed Not Available Not Available Not Available Citrucel Sugar Free oral powder 1 Tbsp PO qd-tid prn 02/09 completed Not Available Not Available Not Available FreeStyle Lite Meter kit TO TEST BLOOD SUGARS DAILY DIRECTED active Not Available Not Available No t Available FreeStyle Lite Strips USE TO TEST BLOOD SUGAR 3 TIMES A DAY active Not Available Not Available No t Available cholecalc iferol (vitamin D3) 1,250 mcg (50,000 unit) capsule Take 1 capsule every week by oral route for 56 days. 2024 active Not Available Not Available Not Avai lable Cholestyr amine Light 4 gram oral powder TAKE 1 SCOOP BY MOUTH 3 TIMES DAILY 10/03 completed Not Available Not Available Not Available omeprazol e 20 mg tablet,de layed release 11/08 completed Not Available Not Available Not Available oxycodone 10 mg tablet 1 tablet by mouth every 4-6 hours as needed for breakthr ough pain x 14 days 11/15 completed Not Available Not Available Not Available Novofine 32 32 gauge x 1/4 needle USE DIRECTED ONCE DAILY 2022 active Not Available Not Available Not Avai lable biotin 2,500 mcg capsule Take 1 capsule every day by oral route as directed . 12/03 completed Not Available Not Available Not Available Aller-Elisa 2012 active Not Available Not Available Not Avai lable multivita min and minerals no.11-fol ic acid 5 mg tablet Take 1 tablet every day by oral route. active Not Available Not Available No t Available paliperid one ER 1.5 mg tablet,ex tended release 24 hr 10/03 completed Not Available Not Available Not Available biotin 5 mg tablet Take 1 tablet every day by oral route. 10/24 completed Not Available Not Available Not Available cetirizin e 10 mg capsule Take 1 capsule by oral route. 2018 active Not Available Not Available Not Avai lable Probiotic 10 billion cell capsule Take 1 capsule every day by oral route for 90 days. 02/09 completed Not Available Not Available Not Available Probiotic Take 1 tablet po daily 12/16 completed Not Available Not Available Not Available Suprep Bowel Prep Kit 17.5 gram-3.13 gram-1.6 gram oral solution Take by oral route for 1 day. 12/15 completed Not Available Not Available Not Available lurasidon e 40 mg tablet TAKE 1 TABLET BY MOUTH EVERY DAY IN THE EVENING 11/08 completed Not Available Not Available Not Available Latuda 20 mg tablet TAKE 1 TABLET BY MOUTH EVERY DAY IN THE EVENING 03/14 completed Not Available Not Available Not Available TRUEplus Lancets 33 gauge 11/08 completed Not Available Not Available Not Available TRUEplus Lancets 30 gauge 11/08 completed Not Available Not Available Not Available Victoza 2-Elvis 10/13 completed Not Available Not Available Not Available Victoza 3-Elvis 0.6 mg/0.1 mL (18 mg/3 mL) subcutane ous pen injector INJECT 1.2 MG UNDER THE SKIN ONCE DAILY active Not Available Not Available No t Available True Metrix Glucose Meter E11.65 11/08 completed Not Available Not Available Not Available Tresiba FlexTouch U-100 insulin 100 unit/mL (3 mL) subcutane ous pen active Not Available Not Available Not Available Fish Oil 1,000 mg (120 mg-180 mg) capsule Take 1 capsule every day by oral route. 10/02 completed Not Available Not Available Not Available Basaglar KwikPen U-100 Insulin 100 unit/mL (3 mL) subcutane ous INJECT 25 UNITS EVERY DAY SUBCUTAN EOUSLY active Not Available Not Available No t Available BD Magali 2nd Gen Pen Needle 32 gauge x 5/32 USE DIRECTED ONCE DAILY active Not Available Not Available No t Available FreeStyle Gonzalo 2 Sensor kit active Not Available Not Available Not Available FreeStyle Gonzalo 2 [place] active Not Available Not Available Not Available Fluzone Quad (PF) 60 mcg (15 mcg x 4)/0.5 mL IM syringe PHARMACY ADMINIST ERED 02/09 completed Not Available Not Available Not Available Mounjaro 5 mg/0.5 mL subcutane ous pen injector Inject 5 mg every week by subcutan eous route as directed for 28 days. 07/09 completed PA APPROVED UNTIL FURTHER NOTICE OF 4 Not Available Not Available Not Available Mounjaro 2.5 mg/0.5 mL subcutane ous pen injector INJECT 2.5 MG SUBCUTAN EOUSLY WEEKLY 11/04 completed Not Available Not Available Not Available biotin 5,000 mcg chewable tablet Take 1 tablet every day by oral route. active Not Available Not Available No t Available Vitals Date Recorded Oxygen saturation Provider Name and Address Organization Details Last Updated DateTime 07/03/2023 95 % Carl Baird MD [address] [address], [place], [address], [facility] [place] 07/03/2023 20:03:01 Date Recorded Body height Body mass index (BMI) Body weight Heart rate Body temperature Systolic And Diastolic Provider Name and Address Organization Details Last Updated DateTime 4 163.83 cm 41.9 kg/m2 146812. 61 g 83 /min 97.6 [degF] 123/76 mm[Hg] Litzy Pires MA [facility] [place] 4 15:58:05 Date Recorded Body height Body mass index (BMI) Body weight Heart rate Oxygen saturation Body temperature Systolic And Diastolic Provider Name and Address Organization Details Last Updated DateTime 4 163.83 cm 40.6 kg/m2 436932. 17 g 71 /min 96 % 98 [degF] 109/78 mm[Hg] Damaris Paris MA [facility] [place] 4 10:37:04 Date Recorded Body height Body mass index (BMI) Body weight Heart rate Oxygen saturation Body temperature Systolic And Diastolic Provider Name and Address Organization Details Last Updated DateTime 4 163.83 cm 40.2 kg/m2 640188. 98 g 74 /min 95 % 97.6 [degF] 103/71 mm[Hg] Damaris Paris MA [facility] [place] 4 09:44:34 Date Recorded Body height Body mass index (BMI) Body weight Heart rate Oxygen saturation Body temperature Systolic And Diastolic Provider Name and Address Organization Details Last Updated DateTime 4 163.83 cm 39.2 kg/m2 435093. 43 g 91 /min 98 % 97.3 [degF] 111/77 mm[Hg] Damaris Paris [facility] 4 09:30:07 Date Recorded Body height Body mass index (BMI) Body weight Heart rate Oxygen saturation Body temperature Systolic And Diastolic Provider Name and Address Organization Details Last Updated DateTime 4 163.83 cm 39.2 kg/m2 359825. 43 g 82 /min 97 % 98.4 [degF] 120/80 mm[Hg] Rebecca alcantara MA [facility] [place] 4 09:50:05 Social History Question Answer Notes LastModified by Organizat ion Details LastModified Time Tobacco Smoking Status Former Smoker Rosita Nhanprateek huff [facility] [place] 11/20/2013 10:02:17 Do You Have An Advance Directive? Yes Information not available 02/10/2020 Animal Exposure? Yes Informat ion not available 03/27/2014 Do You Wear A Helmet When Biking? Yes Information not available 02/10/2020 Is Blood Transfusion Acceptable In An Emergency? Yes Information not available 03/27/2014 What Is Your Level Of Caffeine Consumption? Occasional Information not available 03/27/2014 How Much Tobacco Do You Chew? None Information not available 03/27/2014 What Type Of Diet Are You Following? REGULAR Information not available 03/27/2014 Which Illicit Or Recreational Drugs Have You Used? None Information not available 09/19/2016 Education 2 Year College Informatio n not available 03/27/2014 When Did You Quit Smoking? 11-15yearssinc elastcigarette Information not available 03/14/2023 How Many Days In The Past Year Have You Had A Heavy Drinking Consumption (4+ Female, 5+ Male)? 0 Information not available 03/27/2014 Are There Any Guns Present In Your Home? No Information not available 02/10/2020 What Is Your Home Situation? Other Information not available 02/10/2020 Legally Blind In One Or Both Eyes? No Information not available 03/27/2014 Live Alone Or With Others? With Others Lives W/husban d (Gene) And 3 Dogs Information not available 07/19/2015 Do You Take Precautions To Prevent Distracted Driving? Yes Information not available 07/19/2015 How Often Do You Need To Have Someone Help You When You Read Instructions, Pamphlets, Or Other Written Material From Your Doctor Or Pharmacy? Never Information not available 07/19/2015 Have You Served In The ? No Information not available 09/19/2016 Have You Or Anyone In Your Household Had Any Of The Following Symptoms In The Last 14 Days: Sore Throat, Cough, Chills, Body Aches For Unknown Reasons, Shortness Of Breath For Unknown Reasons, Loss Of Smell, Loss Of Taste, Fever At Or Greater Than 100 Degrees Fahrenheit? No Information not available 02/10/2020 Are You Or Anyone In Your Household A Health Care Provider Or Emergency Responder? No Information not available 02/10/2020 To The Best Of Your Knowledge Have You Been In Close Proximity To Any Individual Who Tested Positive For COVID-19? No Information not available 02/10/2020 Marital Status meri Informatio n not available 03/27/2014 What Was The Date Of Your Most Recent Tobacco Screening? 05/09/2023 [email or web address] Information not available 05/09/2023 Total Number Of Stairs In Home 15 Information not available 03/27/2014 How Many Children Do You Have? 1 Information not available 03/27/2014 What Is Your Current Pack Years? 10packyears Information not available 02/10/2020 Do You Use Protection During Sex? No Information not available 07/19/2015 Difficulty Reading? No Information not available 03/27/2014 What Is Your Relationship Status? Gene Information not available 03/14/2023 Seat Belts Used Routinely Yes Information not available 03/27/2014 Are You Sexually Active? Yes Information not available 03/27/2014 Smoke Alarm In Home Yes Information not available 07/19/2015 Are You Passively Exposed To Smoke? No Information not available 07/19/2015 How Much Tobacco Do You Smoke? 0.25 PPD Information not available 02/18/2019 Do You Use Sunscreen Routinely? Yes Information not available 03/27/2014 How Many Years Have You Smoked Tobacco? 12 Information not available 02/18/2019 Do You Have Difficulty Walking Or Climbing Stairs? No Information not available 02/10/2020 Sex: Unknown Functional Status Question Answer Note LastModified by Organizat ion Details LastModified Time Do you use any illicit or recreational drugs? No Information not available 02/10/2020 What is your level of alcohol consumption? Occasional Information not available 07/19/2015 Are you currently employed? No Information not available 03/27/2014 Difficulty driving at night? No Information no t available 03/27/2014 Are you able to walk independently without assistance or assistive devices? YESLIMIT walker at home Information not available 03/14/2023 Are you able to care for yourself independently? Yes Information not available 03/27/2014 What is your occupation? disabled Information not available 09/19/2016 Do you have difficulty dressing, bathing, grooming, or toileting? No Information not available 02/10/2020 What is your exercise level? None Information not available 07/19/2015 Mental Status Question Answer Note LastModified by Organization D etails LastModified Time Do you have difficulty concentrating, remembering or making decisions? Yes Information no t available 02/10/2020 Family History Relationship Description Onset Age of this Age Resolved Age Notes LastModified by Organization Details LastModified Time Mother Dementia mdalessandro Not avail able 09/20/2015 15:48:02 Mother Arthritis mdalessandro Not avai lable 09/20/2015 15:48:02 Mother Depressive disorder [email or web address] Not available 15:48:02 Mother Hypertensive disorder mdalessandro Not available 15:48:02 Father Arthritis mdalessandro Not avai lable 09/20/2015 15:48:02 Father Obesity mdalessandro Not availa ble 09/20/2015 15:48:02 Father Heart disease mdalessandro Not available 15:48:02 Father Diabetes mellitus mdalessandro Not available 15:48:02 Father Harmful pattern of use of alcohol mdalessandro Not available 15:48:02 Father Hypertensive disorder mdalessandro Not available 15:48:02 Maternal Grandmother Dementia mdalessandro Not available 09/20/2015 15:48:02 Brother Harmful pattern of use of alcohol mdalessandro Not available 15:48:02 Brother Obesity mdalessandro Not avail able 09/20/2015 15:48:02 Sister Depressive disorder mdalessandro Not available 15:48:02 Sister Depressive disorder mdalessandro Not available 15:48:02 Sister Hypertensive disorder mdalessandro Not available 15:48:02 Sister Allergy mdalessandro Not availa ble 09/20/2015 15:48:02 Sister Allergy mdalessandro Not availa ble 09/20/2015 15:48:02 Sister Harmful pattern of use of alcohol mdalessandro Not available 15:48:02 Sister Anxiety disorder mdalessandro Not available 15:48:02 Sister Anemia mdalessandro Not availab le 09/20/2015 15:48:02 Sister Migraine mdalessandro Not avail able 09/20/2015 15:48:02 Sister Seizure disorder mdalessandro Not available 15:48:02 Sister Disorder of thyroid gland mdalessandro Not available 15:48:02 Sister Disorder of thyroid gland mdalessandro Not available 15:48:02 Medical History Condition Response Other Y Gout N Kidney Stones Y Blood Diseases N Hyperthyroidism N Breast Cancer N Depression Y COPD N Lung Disease N Hypothyroidism N Defects or Inherited Disease N Anesthesia Complications N Headaches/Migraines N Varicose Veins N Anxiety Disorder Y Obesity Y Vision or Eye Problems Y Arthritis N Head Injury/Concussion N Polyps N Infertility N Congenital Anomalies N Acid Reflux (GERD) N Cancer N Stroke N ADHD N Endometriosis N High Cholesterol N Liver Disease N Fibromyalgia N Kidney Disease N Heart Problems N Ear or Hearing Problems N Hospitalizations Y Thyroid Problems N GI Problems Y Acne Y Eating Disorder N Skin Problems N Anemia Y Constipation N Bladder Problems N Mental Illness Y Ovarian Cancer N Diabetes N Blood Transfusions N Seizures/Epilepsy N Tuberculosis N AIDS/HIV N Congestive Heart Failure (CHF) N Eczema N Diverticulitis N Abuse/Domestic Violence N Asthma N Allergies Y Reflux/GERD N Hepatitis N Pulmonary Embolism N Hypertension Y Chicken Pox Y Autism Spectrum Disorder (ASD) N Osteoporosis N Gynecological History Statement/Question Response Abnormal Pap Y STIs/STDs N Age at Menarche 13 Current Control Method None Most Recent Mammogram 03/26/2020 Age at First Child 1 Date of Last Colonoscopy 02/11/2018 Sexually Active? Y Menses Monthly N Date of Last Pap Smear 06/14/2015 Sexual Problems? Y LMP Unknown Desired Control Method IUD Obstetrics History GPAL:G 0 P 0 0 0 0 Immunizations Vaccine Type Date Status Note Provider Nam e and Address Organization Details Recorded Time pneumococcal polysaccharide PPV23 1 completed Not Available [facility] 01/29/2023 19:36:06 Influenza, split virus, trivalent, preservative 1 completed Not Available [facility] 01/29/2023 19:36:06 COVID-19, mRNA, LNP-S, PF, 100 mcg/0.5mL dose or 50 mcg/0.25mL dose 1 completed Not Available [facility] 01/29/2023 19:36:06 COVID-19, mRNA, LNP-S, PF, 100 mcg/0.5mL dose or 50 mcg/0.25mL dose 2 completed Not Available [facility] 01/29/2023 19:36:06 Influenza, split virus, quadrivalent, PF 2 completed Not Available [facility] 01/29/2023 19:36:06 COVID-19, mRNA, LNP-S, bivalent, PF, 50 mcg/0.5 mL or 25mcg/0.25 mL dose 2 completed Not Available [facility] 01/29/2023 19:36:06 COVID-19, mRNA, LNP-S, PF, 100 mcg/0.5mL dose or 50 mcg/0.25mL dose 1 completed JUSTIN Caputo, [facility] [place] 02/07/2023 10:09:53 COVID-19, mRNA, LNP-S, PF, 100 mcg/0.5mL dose or 50 mcg/0.25mL dose 1 completed JUSTIN Caputo, [facility] [place] 02/07/2023 10:09:53 Influenza, split virus, quadrivalent, PF 1 completed JUSTIN Caputo, [facility] [place] 02/07/2023 10:09:53 Influenza, split virus, quadrivalent, PF 0 completed JUSTIN Caputo, [facility] [place] 02/07/2023 10:09:53 COVID-19, mRNA, LNP-S, PF, 50 mcg/0.5 mL 3 completed JUSTIN Heredia, [facility] [place] 03/14/2023 15:18:01 Influenza, split virus, quadrivalent, PF 7 completed Not Available [facility] 03/15/2019 02:22:07 Influenza, split virus, quadrivalent, PF 7 completed Not Available [facility] 03/15/2019 02:22:11 pneumococcal polysaccharide PPV23 7 completed Not Available [facility] 03/15/2019 02:21:26 Influenza, split virus, quadrivalent, PF 4 completed Not Available [facility] 03/15/2019 02:21:56 Influenza, split virus, quadrivalent, PF 8 completed Not Available [facility] 03/15/2019 02:22:16 Influenza, split virus, quadrivalent, PF 9 completed Not Available [facility] 03/15/2019 02:22:10 Influenza, split virus, trivalent, preservative 3 completed Not Available [facility] 01/29/2023 19:36:06 Tdap 4 completed Not Available [facility] 01/29/2023 19:36:06 Influenza, split virus, quadrivalent, PF 3 completed Delores Hou PA-C [address] [facility] [address], [place], [address], [facility] [place] 11/10/2022 12:36:08 Influenza, split virus, trivalent, PF 4 completed Delores Hou PA-C [address] [facility] [address], [place], [address], [facility] [place] 11/07/2023 14:21:47 Past Encounters Encounter ID Performer Location Encounter Start Date Encounter Closed Date Diagnosis/Indication Diagnosis SNOMED-CT Code Diagnosis ICD10 Code Diagnosis IMO Codes Diagnosis Note [id number] auto[facility]Comm erce [address] [facility] [place] [address] 05/10/2012 00:00:00 [id number] autoEComm erce [address] [facility] [place] [address] 07/08/2012 00:00:00 [id number] autoEComm erce [address] [facility] [place] [address] 08/08/2012 00:00:00 [id number] autoEComm erce [address] [facility] [place] [address] 12/07/2012 00:00:00 [id number] autoEComm erce [address] [facility] [place] [address] 12/13/2012 00:00:00 [id number] autoEComm erce [address] [facility] [place] [address] 04/04/2013 00:00:00 [id number] CHRYSTAL [place] Main Office [address] [facility] [address] [place] [address] 11/20/2013 09:36:37 11/20/2013 10:47:35 Essential hypertension [id number] BP not well controlled , patient states it was better when she was going to gym but she has been unable to go to Gym due to rash. Will increase HCTZ to 25mg. F/U in 3 months Needs infl uenza immunization [id number] Bipolar disorder 25860585 Hypertrophy of breast 412288062 Patient states she has been in contact with Dr. Mae's office, is waiting for an appt. She feels her back pain is getting worse and she is unable to sleep due to increased pain. Major depr essive disorder 179977566 Pain in th oracic spine 726296877 Pt c/o increased pain to back, which wakes her from sleep. She has been taking 1 tramadol BID but feels it is not helping. Discussed with PCP, will increase to 2 tramadol at night and continue 1 tramadol in am. Rx refilled x 3 months. Eruption [id number] Recomme nd patient see her dermatolog ist for rash. She recently saw her dermatolog ist but forgot to mention the groin rash. Will tx w/ econazole and have pt call derm for an appt. [id number] Audra Lee [facility] Main Office [address] [facility] [address] [place] [address] 12/22/2013 09:48:26 12/22/2013 10:48:43 Disease of liver 298700236 [id number] Cristian Vang [facility] Main Office [address] [facility] [address] [place] [address] 01/21/2014 12:52:39 01/21/2014 13:57:22 Pain in thoracic spine 144292513 Pt c/o increased pain to back, which wakes her from sleep. She has been taking 1 tramadol BID but feels it is not helping. Discussed with PCP, will increase to 2 tramadol at night and continue 1 tramadol in am. Will refill today and speak to her PCP about further treatment. Acute sinusitis 58591397 S x x 5 days, temp to 101, allergic to PCN and doxy, will tx with levaquin x 7 days. Patient states she does not have liver disease but rather shiock liver due to a side effect from medication . [id number] CHRYSTAL Simon Main Office [address] [facility] [address] [place] [address] 03/27/2014 09:00:21 03/27/2014 09:56:16 Pre-surgery evaluation 717732542 Mallorie is at low cardiopulm onary risk for this procedure. Frost periop cardiac risk score is 0.1%. NO FURTHER TESTING INDICATED BEFORE SURGERY. Macromastia 579667319 Intertrigo 14523407 in romel in. reoccuring due to excess skin folds. Diabetes mellitus 35246804 recent worsening. will start oral med. she is motivated to exercise and eat better after surgery. she will get eye exam. she has f/u in 5 months. we will mail her lab order to repeat in 3 months. Essential hypertension 34219172 well controlled [id number] CHRYSTAL Simon Main Office [address] [facility] [address] [place] [address] 04/01/2014 10:35:36 04/01/2014 11:21:22 Diabetes mellitus 07836640 since surgery is 5 days from now and she did not tolerate metformin I want her to wait until after surgery to start a DM2 med. she wants to try taking the extended release metformin to see if tolerated better. her A1C is 7.0 so she is not that out of control. Nausea 730141466 side effect of metformin. improved off metformin [id number] Ti riggs MD Main Office [address] [facility] [address] [place] [address] 07/19/2015 14:54:43 07/19/2015 16:52:57 Adult health examination 985824369 Z00.00 Diabetes mellitus 932687 09 E11.9 Essential hypertension 98646214 I10 Major depr essive disorder 334798310 F32.9 Dr Germania garcia/ [facility] Bipolar disorder 8962790 4 F31.9 Nausea 992795841 R11.0 Candidal paronychia 1870 13816 B37.2 Plastic re pair procedure 243491051 Z42.8 Screening for malignant neoplasm of colon 383178875 Z12.11 Allergic rhinitis 858956 04 J30.9 Localized anaphylaxis 14 976615 T78.2XXD pt gets rxn to throat swelling-n eeds epi-pen [id number] Hennymiriam Hou PA-C Main Office [address] [facility] [address] [place] [address] 08/23/2015 11:00:44 08/23/2015 12:42:22 Pre-surgery evaluation 732428130 Z01.818 Ms. Cleveland has no increase cardiopulm onary risk for the above procedure under general anesthesia based on her EKG, labs, history and PE. Copy of the note , labs and EKG will be forwarded to Dr. Mae. Essential hypertension 92921587 I10 Type 2 tmimy betes mellitus without complication 548909285 E11.9 Bipolar disorder 5418974 4 F31.9 [id number] Ti riggs MD Main Office [address] [facility] [address] [facility] [place] [address] 09/20/2015 10:43:49 09/20/2015 12:06:31 Cyst of ovary 17341657 N83.20 Nausea 292711099 R11.0 Gastroesop hageal reflux disease 355073769 K21.9 pt has had EGD[place] [facility] showed erosive gastritis per Lillian Bustillos- 05/2015/ EGD was done 2014 Recurrent urinary tract infection 445608895 N39.0 Diabetes mellitus 040874 09 E11.9 Ganglion of foot 8998202 01 M67.479 [id number] Henny Hou PA-C Main Office [address] [place] [address] 11/02/2015 15:23:07 11/02/2015 15:53:01 Acute maxillary sinusitis 13797911 J01.00 Start Abx. PT. is allergic to Doxycyclin e and PNC. Start nasal saline rinse daily . Continue allergy meds and add OTC Sudafed at 30-60 mg q 6 hrs if tolerated. [id number] [place] MD Main Office [address] [address] [place] [address] 03/08/2016 13:46:25 03/08/2016 14:12:29 Needs influenza immunization 126900158 Z23 [id number] Henny Hou PA-C Main Office [address] [place] [address] 09/08/2016 11:28:18 09/08/2016 12:22:42 Localized anaphylaxis 33468638 T78.2XXA Acute sinusitis 33709724 J01.90 Dizziness 291915558 R42 probably secondary to combinatio n of low BP and sinus infection. Pt. ias advised to lower HCTZ to 12.5 mg and call office in couple of days if continues with dizziness and fatigue. Pt. will also monitor her BP at . [id number] [place] MD Main Office [address] [address] [place] [address] 09/19/2016 15:12:35 09/19/2016 16:59:31 Nausea 436612357 R11.0 Diarrhea 48739592 R19.7 Benign par oxysmal positional vertigo 611823034 H81.10 [id number] Hood [place] MD Main Office [address] [address] [place] [address] 09/25/2016 12:47:28 09/25/2016 13:42:00 Vertigo 031640561 R42 Irritable bowel syndrome 15176158 K58.9 [id number] Ti riggs MD Main Office [address] [address] [place] [address] 10/24/2016 13:30:45 10/24/2016 15:10:02 Adult health examination 048642363 Z00.00 Screening for malignant neoplasm of breast 974201074 Z12.39 Needs infl uenza immunization 336742869 Z23 Administra tion of pneumococcal vaccine 39457424 Z23 Type 2 timmy betes mellitus without complication 786391899 E11.9 Dysuria 65949088 R30.0 Bipolar disorder 4284546 4 F31.9 pt sees psychiatry -Ekta remy and a therapist monthly [id number] CHRYSTAL Ventura Main Office [address] [address] [place] [address] 10/03/2017 11:33:00 10/03/2017 12:22:31 Acute sinusitis 08836236 J01.90 hydration, rest, meds as directed. Bronchitis 79443259 J40 [id number] Jake Pierce MD Main Office [address] [address] [place] [address] 12/15/2017 10:57:45 12/15/2017 12:07:50 Needs influenza immunization 415745648 Z23 Backache 183569878 M54.9 History and exam symptoms suggest back pain secondary to deconditio edison and starting a new job requiring her to be on her feet. Will address with home and formal PT, NSAIDS PRN, warm/cold compress before/aft er work and orthotics. If no improvemen t will need PMR evaluation . Acute low back pain 2788 45193 M54.5 Foot pain 77772863 M79.6 71 M79.672 Has podiatry appt [id number] Natalia quinones NP Main Office [address] [facility] [address] [place] [address] 03/01/2018 12:55:43 03/01/2018 13:59:36 Acute back pain with sciatica 536620511 M54.42 Pt will rest, use ice and stretch. Add mobic once a day for pain control. Continue with PT, has 3 appointmen ts next week. Call if not improving. Has followup in a few weeks, Bipolar disorder 3447914 4 F31.9 set up to see counselor and psychiatri st next week, continue present meds for now. Aware to call crisis if any acute changes. Stable at discharge, safe, has at home with her. Type 2 timmy betes mellitus without complication 358696448 E11.9 will do labs before upcoming ov [id number] Jake Pierce MD Main Office [address] [facility] [address] [place] [address] 03/28/2018 13:01:42 03/28/2018 14:17:35 Adult health examination 236871978 Z00.00 has pap and eye md visits next month Bipolar disorder 9272963 4 F31.9 cont meds, f/u c psych Uncontroll ed type 2 diabetes mellitus 157512721 E11.65 Essential hypertension 19007556 I10 stable, cont med as dir Vitamin D deficiency 347 17677 E55.9 Body mass index 30+ - obesity 084857984 Z68.38 [id number] Hood [place] MD Main Office [address] [facility] [address] [facility] [place] [address] 06/05/2018 12:57:28 06/05/2018 14:13:15 Type 2 diabetes mellitus without complication 105696378 E11.9 Total time spent teaching and coordinati ng diabetic care 45 minutes. Basic physiology of Type II Diabetes Mellitus was reviewed. Glucose records were reviewed. Pt. will increase glucose testing via [employer] to TID nefore each main meal as recommende d. Goal for fasting glucose is 80-130 and 1-2 hrs after the meal under 180. Pt. will be set up at [facility] for diabetic nutrition consult. Pt. was advised to start exercise activity by walking 30 min at least 3 times weekly and increase weekly or by weekly to 4-6 day per week. If unable to walk , pt. should use other exercise modalities /equipment that is stationary at home or in the gym for that amount of time weekly or water exercises. Continue Metformin at current dosage. Add Victoza at 0.6 mg daily SC injections . Possible side effects discussed. Mainly weight loss benefit as well as cardiovasc ular data. Body mass index 30+ - obesity 593370563 Z68.39 Obesity 516655032 E66.9 [id number] Jose D Watkins MD Main Office [address] [facility] [address] [place] [address] 09/20/2018 14:34:39 09/20/2018 15:49:00 Essential hypertension 08885190 I10 Type 2 timmy betes mellitus without complication 130177453 E11.9 Prolapsed cervical intervertebral disc 064793521 M50.20 She notes she has been scared to take prednsione as she is bi polar but is willing to do a short taper. will taper over 8 days. They are in the process of getting all records for Dr. Teague's office so that she may get an appt to be seen. Cervical n erve root compression 83591670 M50.10 Start gabapentin 1 tab am, 1 tab afternoon, 2 tabs PM, this will likely be helpful for the nerve component, needs neurosurg appt clark. also encouraged to keep her canelo appt for PT eval but if sx worsen do not continue PT until seen by neurosurge ry. Constipation 11265038 K5 9.00 due to narcotics, start colace daily, BID if needed. Bipolar disorder 8850882 4 F31.9 Major depr essive disorder 148324037 F32.9 [id number] Jose D Watkins MD Main Office [address] [facility] [address] [facility] [place] [address] 09/27/2018 14:10:20 09/27/2018 15:20:59 Gastroesophageal reflux disease 239898811 K21.9 taking omeprazole and rantidine and GERD sx are worsening. suspect this is due to constipati on. Constipation 02939992 K5 9.00 due to narcotics, will check XR to c/o obstructio n and rx miralax to be used daily until good BM then as needed. instructed to stop her biotin and MVI. Prolapsed cervical intervertebral disc 440619046 M50.[address] teague 3 weeks away, would like to [facility] get [facility] sooner but she would like to see dr bruno. Cervical n erve root compression 66868711 M50.10 continue gabapentin until seen by neurosurge ry, restart narcotic pain meds as she hasn't taken any today and is feeling worse. Essential hypertension 97800035 I10 Type 2 timmy betes mellitus without complication 795182831 E11.9 Bipolar disorder 1009710 4 F31.9 Major depr essive disorder 651193766 F32.9 [id number] Jake Pierce MD Main Office [address] [facility] [address] [place] [address] 10/02/2018 12:32:40 10/02/2018 16:41:08 Gastroesophageal reflux disease 103202457 K21.9 cont ppi and ranitidine bid, encouraged her to take gaviscon hs Constipation 96395152 K5 9.00 rec increase miralax to bid, may need tid on occasion Cervical n erve root compression 68510608 M50.10 seen by neurosurge on earlier today, will be scheduled for surgery, and they gave her oown cont pain pills as dir - but slowly titrate up gabapentin as isabela (now on 1-1-2, so try 2-1-2 for a few days, then if isabela well then increase to 2-2-2) [id number] Jake Pierce MD Main Office [address] [facility] [address] [place] [address] 10/21/2018 10:07:44 10/21/2018 11:27:13 Cervical disc disorder with radiculopathy 997931003 M50.10 R C8 radiculopa thy s/p discectomy /fusion - cont meds as dir for now (few more days) then slowly titrate pain meds / m. relaxer as isabela, pending PT eval soon, cont fu c neurosurge on on 11.13 25 minute office visit with greater than 50% of the visit face-to-fa ce with the patient and/or family providing counseling and/or coordinati on of care. spoke c pt at length about pain needs and how to address / how to wean the majority of her meds over time (near future) stop steroid at 10pm - rather take at 8am/5pm cont m relaxer hs cont long-actin g morphine at hs - then stop morphine in 1-2 wks cont gabapentin , but lower to 1 tab tid x several wks / few months until re-eval back off prn oxy from q4 to q6-8 hours prn during day [id number] Jose D Watkins MD Main Office [address] [facility] [address] [place] [address] 11/15/2018 08:48:11 11/15/2018 09:42:32 Eruption 482061315 R21 seems to be contact dermatitis to ? plant. she is on loratadine , pepcid and benadryl around the clock, will add prednisone burst. she needs to stop contact with trigger if possible. Localized anaphylaxis 14 416939 T78.2XXA needs refill on epi pen, she requests allergy refill Bipolar disorder 3438844 4 F31.9 following with her psychiatri , has an appt next week. getting set up with therapy through work/ insurance [employer] [id number] Hood Lake MD Main Office [address] [facility] [address] [place] [address] 11/27/2018 10:30:35 11/27/2018 12:31:17 Dysuria 38799358 R30.0 Nausea 287202041 R11.0 Diarrhea 26134830 R19.7 recent abx, watery bm's up to 8-10/day - will check stool studies, keri c diff advised pt to stop questran - she has vomited p it rec BRAT diet rec resume probiotic - used to take - see below Cervical d isc disorder with radiculopathy 130883991 M50.10 R C8 radiculopa thy s/p discectomy /fusion - off pain meds, not in OT, cont f/u c neurosurge on 25 minute office visit with greater than 50% of the visit face-to-fa ce with the patient and/or family providing counseling and/or coordinati on of care. 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 Abdominal pain 99759396 R10.9 Irritable bowel syndrome 22137318 K58.0 rec resume probiotic - pt requests to attempt refill to see if covered (stopped probiotic d/t $), also rec citrucel as a bulking agent pt is s/p gastric bypass and lap nuria Allergic rhinitis 427523 04 J30.9 [id number] Hood [place] MD Main Office [address] [facility] [address] [place] [address] 12/03/2018 10:08:56 12/03/2018 12:30:55 Acute sinusitis 32338967 J01.90 [id number] Jake Pierce MD Main Office [address] [facility] [address] [place] [address] 12/16/2018 11:07:02 12/16/2018 12:29:50 Needs influenza immunization 557521712 Z23 Diarrhea 37635300 R19.7 stool studies normal - fol by bariatric surgeon and gi - will attempt to get ov notes - cont fodmap diet and probiotic as dir - will send imodium ad tabs to [facility] - could use 1-2 tabs up to 2-3x/day prn History of bariatric surgical procedure 476723048 Z98.84 h/o gastric sleeve - fol by bariatric surgeon - pending barium swallow tomorrow Cervical d isc disorder with radiculopathy 646289790 M50.10 R C8 radiculopa thy s/p discectomy /fusion - off pain meds, not in OT, cont f/u c neurosurge on pt supposed to be oow until 12.24 from neurosurge on -- pt will call / portal message if she does not feel up to it next wk - consider 1 or 2 extra wks oow if necessary 25 minute office visit with greater than 50% of the visit face-to-fa ce with the patient and/or family providing counseling and/or coordinati on of care. Fatigue 36551965 R53.83 normal h/h lately, will recheck bmp and tsh -- ? d/t dehydratio n from recent diarrhea Vitamin D deficiency 347 44449 E55.9 Type 2 timmy betes mellitus without complication 156734546 E11.9 check a1c and microalbum in since doing above labs anyways -- f/u c Ev[employer] next month as dir [id number] Hood [place] MD Main Office [address] [facility] [address] [place] [address] 12/27/2018 09:31:05 12/27/2018 10:29:20 Diarrhea 54239539 R19.7 r/o Celiac and pt. was advised to discuss with GI testing for gastropare sis. We will lower her metfromin to 1000 mg and hold her Victoza to see if symptoms improve. Type 2 timmy betes mellitus without complication 565693571 E11.9 Hold Victoza due to GI symptoms. Lower metformin to ER 500 mg 2 po qd with supper. Start pioglitazo ne 30 mg daily. F/u 6 weeks. 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 if her IBS started p was extremely constipate d from narcotics when had her neck surgery back ~ 8.19 25 minute office visit with greater than 50% of the visit face-to-fa ce with the patient and/or family providing counseling and/or coordinati on of care. [id number] Hood Lake MD Main Office [address] [address] [place] [address] 02/03/2019 09:23:10 02/03/2019 10:33:52 Type 2 diabetes mellitus without complication 427008861 E11.9 D/c pioglitazo ne due to anxiety related to possible side effects of CHF. Restart metfromin at 1000 mg dose. Continue low carb high fiber diet and increase exercise. F/u 3 m. [id number] Hood [place] MD Main Office [address] [address] [place] [address] 02/04/2019 14:59:50 02/04/2019 15:37:11 Type 2 diabetes mellitus without complication 323727970 E11.9 Due to severe IBS diarrhea predominan t, we will discontinu e metfromin for good as it might be contributi ng to her symptoms. Start Januvia 100 mg daily and test glucose regularly. Continue victoza at smallest dose. Reevaluate in 2-3 m. 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 to office if not improved in 3 days History of multiple allergies 074031646 Z88.9 multiple med allergies, tx with cipro [id number] Jake Pierce MD Telehealt h [address] [facility] [address] [facility] [place] [address] 02/10/2020 07:10:20 02/10/2020 15:34:32 Essential hypertension 03443492 I10 cont med as dir -- pt does not have bp cuff and refuses to come in for ov / will not leave house until covid19 pandemic winds down - so will attempt to send bp cuff script to [facility] - fill whichever is cheaper / covered Type 2 timmy betes mellitus without complication 071015538 E11.9 advised pt okay to slowly resume/upt itrate metformin as dir - see below from gi (advised diarrhea not d/t metformin, she has plenty of pills at home) - if/when BS are lower can consider stopping januvia Bipolar disorder 4335312 4 F31.9 cont meds, f/u c psychiatri st q 2 wks, 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 wkly Diarrhea 96717924 R19.7 better lately - cont f/u c gi - h/o bile acid seq - cont chol & prn imodium -- gi rec re-try metformin as diarrhea likely d/t bile acid - not SE of metformin will attempt to get gi notes Noncomplia nce with therapeutic regimen 373576055 Z91.19 see above [id number] Carl Baird MD Telehealt h [address] [facility] [address] [facility] [place] [address] 02/28/2020 07:29:07 02/28/2020 11:11:43 Acute sinusitis 46893602 J01.90 -patient already on flonase and zyrtec, advised continue use -patient advised abx typically are not started till after day 7 I advised not to fill unless sx get worse but abx will still be sent in event she needs it, risk of resistance discussed. -Discussed the risk of covid/othe r viral illness, as her sx also fit viral type of picture but she is almost for certain it is not, precaution measures still advised-wi ll also send saline mist/humid ified air advised/wa rm compress/c ough could be due to post nasal drip none the less will send tessalon perles as patient cannot take honey due to dm-salt water gargle advised for sore throat and sugar free lozenges-w ill hold other decongesta nts for now patient has hx of multiple medication allergies. [id number] Jake Pierce MD Main Office [address] [facility] [address] [facility] [place] [address] 11/08/2022 10:02:21 11/08/2022 11:20:39 Noncompliance with therapeutic regimen 234598174 Z91.199 last seen for > 2.5 yrs ago Hepatitis C screening 41 2058913 Z11.59 Chronic ki dney disease stage 2 487548407 N18.2 Hypertensi ve renal disease 65706625 I12.9 bp stable, cont med as dir Renal diso rder due to type 2 diabetes mellitus 783720080 E11.22 N18.2 Continue quarterly follow-up of serum creatinine , blood pressure, glycemic control. Referral to renal as indicated. 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 wkly Hyperlipidemia 63935814 E78.5 not on statin, recheck lipids Body mass index 40+ - severely obese 042386552 E66.01 Z68.41 cont plenty of walking/co nsider HIIT, consider myplate.go v, rec increase sleep to 7-8 hours/nigh t History of bariatric surgical procedure 309823094 Z98.84 h/o gastric sleeve - fol by bariatric surgeon [id number] Jake Pierce MD Main Office [address] [facility] [address] [facility] [place] [address] 03/09/2023 08:13:30 03/14/2023 15:30:30 [id number] LISANDRO SANCHEZ Main Office [address] [facility] 207 [place] [address] 03/14/2023 15:05:47 03/14/2023 15:57:55 History of cerebrovascular accident 815827648 Z86.73 was [place] and [place] [facility] [place] after having a stroke s/p thrombecto my-MRI brain showed acute infarct in the right MCA territory- Small chronic infarct in the right frontal lobe-Echo with bubble study LVEF, no wall motion abnormalit y, no right to left shunting. bilateral LE venous dopplers negative-w ill order quality assurance monitor final to identify possible atrial fibrillati on Transition of care [id number] Z75.8 reviewed hospital documentat ion Hypomagnesemia 521092451 E83.42 will recheck magnesium levels Acute sinusitis 52666773 J01.90 -symptoms of sinus pressure/t enderness, ear pressure, and nasal congestion -could be contributi ng to pt headaches- will provide azithromyc in Tension-type headache 39 0010765 G44.209 -notes of having daily headaches- is currently on sumatripta n 25mg daily; notes the effects are temporary and still experienci ng intense headaches after a few hours of relief-cathy cribes as a band like pressure along the forehead-N SAIDs provide no relief-sin usitus could be contributi ng to worsening pt headache [id number] Jake Pierce MD Tele[facility] [address] [facility] [address] [place] [address] 03/20/2023 10:24:04 03/20/2023 12:06:06 Hemiplegia and/or hemiparesis following stroke [id number] 9107 I69.359 s/p cva c L [place]miwas [place] [facility] having a stroke s/p thrombecto my-MRI brain showed acute infarct in the right MCA territory- Small chronic infarct in the right frontal lobe-Echo with bubble study LVEF, no wall motion abnormalit y, no right to left shunting. bilateral LE venous dopplers negative-w ill order quality assurance monitor final to identify possible atrial fibrillati on - pending quality assurance monitor final 03.20.23 - stable, has OT/PT/MANAGER ZONE coming to her home, pt's purchased a hospital bedpending see neuro 2.1 Headache 02092819 R51.9 no sig change p take abxsee below Tension-type headache 39 3722100 G44.209 -notes of having daily headaches- is currently on sumatripta n 25mg daily; notes the effects are temporary and still experienci ng intense headaches after a few hours of relief-cathy cribes as a band like pressure along the forehead-N SAIDs provide no relief-sin usitus could be contributi ng to worsening pt headache 1.23.24 - using warm compresses to neck, and cool compresses to forehead prnnot sleeping well - will try prn m relaxerpen ding see neuro 2.1 Nausea 834433249 R11.0 pt requested refill of prn zofrancont flat armida júnior or armida tea Hypertensi ve renal disease 81246562 I12.9 bp stable as per RN checking at home, cont meds as dir, pt requests bp cuff for home userec stay well hydrated to help minimize possible orthostasi s Chronic ki dney disease stage 2 717182645 N18.2 [id number] Carl Baird MD Main Office [address] [facility] [place] [address] 03/24/2023 11:03:57 03/24/2023 11:51:28 Abdominal mass 581267584 R19.00 Based on the physical examinatio n findings, I suspect that the hard lump near the patient's umbilicus is likely attributab le to the deposition of her injectable medication s (Victoza, insulin, and Imitrex), a condition commonly referred to as lipohypert rophy. However, to ensure comprehens samuel care and rule out other potential causes, I will order an ultrasound of the area for confirmati on. [id number] Carl Baird MD Main Office [address] [facility] [place] [address] 04/10/2023 10:55:44 04/10/2023 11:51:38 Renal disorder due to type 2 diabetes mellitus 051374148 E11.22 N18.2 Uncontroll ed type II DM with CKD stg 2. Advise to begin injections of basal insulin basaglar at 20 u daily. Injections were discussed. Pt. will also increase Victoza to max dose of 1.8 mg daily and we will try to get her approved fro Mounjaro weekly incretin injections . Test glucose 3 times daily alternatio n between premeal and 2 hr post meal every other day. F/u 2 weeks. Chronic ki dney disease stage 2 632851702 N18.2 repeat labs and microalbum in today. Hyperlipidemia 25817114 E78.5 continue statin and repeat lipids today. Acute otitis media 39168 03 H66.91 begin antibiotic s as directed for 10 days, warm compress BID 10-15 min. [id number] Jake Pierce MD [facility] h [address] [facility] [address] [place] [address] 04/23/2023 09:27:17 04/23/2023 10:43:26 Renal disorder due to type 2 diabetes mellitus 943477014 E11.22 N18.2 Some improvemen t in diabetic values since the last visit 2 weeks ago. AM glucose is still elevated as well as postprandi al glucose. Increase basaglar to 25 u daily for the next 2 weeks until pt is on 5 mg of Mounjaro weekly. Then drop back to 20 u. Continue metformin . Lab results were discussed with pt. Elevated ALT of 59 due to fatty liver, elevated TRG 215 with low LDL, normal TSH . NO sign microalbum inuria.F/u 6 weeks in office for weight check and A1c. Migraine 63957870 G43.90 9 requested refills. Chronic ki dney disease stage 2 701321923 N18.2 [id number] Jake Pierce MD [facility] h [address] [facility] [address] [place] [address] 04/24/2023 12:46:13 04/24/2023 14:39:41 Hemiplegia and/or hemiparesis following stroke 5400528410 9107 I69.359 s/p cva c L hemiwas [place] and [place] [facility] [place] having a stroke s/p thrombecto my-MRI brain showed acute infarct in the right MCA territory- Small chronic infarct in the right frontal lobe-Echo with bubble study LVEF, no wall motion abnormalit y, no right to left shunting. bilateral LE venous dopplers negative-w ill order quality assurance monitor final to identify possible atrial fibrillati on - pending quality assurance monitor final 1..24 - stable, has OT/PT/MANAGER ZONE coming to her home, pt's purchased a hospital bedpending see neuro 2.1 2.24 - getting better / making progress, cont services as dir, cont f/u c neuro - ? may be transition ing to outpt PT next week? -- will consider going to [facility] Headache 13063465 R51.9 no sig change p take abxsee below 2.24 - quispe better in generalhas had sig help c prn flexerilta scooter imitrex too frequently - got a refill, now knows to use the prn migraine (better now)seen by neuro - rev note - + help c indocin trial, pending see quispe specialist in 07.19but still has sinus/ear concerns - see below Tension-type headache 39 4518890 G44.209 -notes of having daily headaches- is currently on sumatripta n 25mg daily; notes the effects are temporary and still experienci ng intense headaches after a few hours of relief-cathy cribes as a band like pressure along the forehead-N SAIDs provide no relief-sin usitus could be contributi ng to worsening pt headache 03.20.23 - using warm compresses to neck, and cool compresses to forehead prnnot sleeping well - will try prn m relaxerpen ding see neuro 2.1 2.24 - hs flexeril helping, see below Chronic sinusitis 810105 00 J32.9 see above - even had sinus problems back at rehab - sxs x few months, better but still persist - concerned - has used zpak and levaquin - no current pur nasal dc so will defer abx at this time [id number] Jose D Watkins MD Telehealt h [address] [facility] [address] [facility] [place] [address] 05/09/2023 09:34:33 05/09/2023 10:24:04 Hyperlipidemia 65432261 E78.5 Localized anaphylaxis 14 016468 T78.2XXA needs refill on epi pen, she requests allergy refill Tension-type headache 39 9550473 G44.209 [place] 12589962 M6 2.831 Getting charleyhor ses but is hydrated, recommend tonic water at bedtime to see if that helps. Candidal intertrigo 2661 84230 B37.2 wash and dry area very well, apply ketoconazo le cream once daily x 14-21 days. once rash has improved may use topical powder to prevent rash. Call/ return if any worsening [id number] Jake Pierce MD Main Office [address] [facility] [address] [facility] [place] [address] 06/25/2023 10:51:44 06/25/2023 11:59:22 Edema of lower extremity 755366379 R60.0 no h/o chfhas mild varicositi esmost likely d/t dependent edema -- keri with increased heat/humid ity yesterday/ todayrec prn elevation, comp sockshas been on hctz 25mg x yrs - never had edema before Hemiplegia and/or hemiparesis following stroke 8283911950 9107 I69.359 s/p cva c L hemiwas seen and [place] [facility] [place] having a stroke s/p thrombecto my-MRI brain showed acute infarct in the right MCA territory- Small chronic infarct in the right frontal lobe-Echo with bubble study LVEF, no wall motion abnormalit y, no right to left shunting. bilateral LE venous dopplers negative-w ill order quality assurance monitor final to identify possible atrial fibrillati on - pending quality assurance monitor final 03.20.23 - stable, has OT/PT/MANAGER ZONE coming to her home, pt's purchased a hospital bedpending see neuro 2.1 2.24 - getting better / making progress, cont services as dir, cont f/u c neuro - ? may be transition ing to outpt PT next week? -- will consider going to [facility] 4.24 - pending start PT later this weekstill has some mild L sided weaknesspt s/w [facility] - they stated a hospital bed would be covered, and possibly a chair lift covered - pt requested rx for hospital bedcont f/u c neuro Hypertensi ve renal disease 78798450 I12.9 bp stable as per RN checking at home, cont meds as dir, pt requests bp cuff for home userec stay well hydrated to help minimize possible orthostasi s 4.24 - bp stable, cont meds as dir Chronic ki dney disease stage 2 665126281 N18.2 [id number] Jake Pierce MD Telehealt h [address] [facility] [address] [facility] [place] [address] 06/26/2023 12:47:40 06/26/2023 14:37:02 Fatigue 82362922 R53.83 likely d/t deconditio edison - cont walking, about to begin PT later this weekcheck labs to r/o metabolic cause Headache 08136579 R51.9 no sig change p take abxsee below 2.24 - quispe better in generalhas had sig help c prn flexerilta scooter imitrex too frequently - got a refill, now knows to use the prn migraine (better now)seen by neuro - rev note - + help c indocin trial, pending see quispe specialist in 5.24but still has sinus/ear concerns - see below 4.24 - pending see neuro later this week Tension-type headache 39 1658491 G44.209 -notes of having daily headaches- is currently on sumatripta n 25mg daily; notes the effects are temporary and still experienci ng intense headaches after a few hours of relief-cathy cribes as a band like pressure along the forehead-N SAIDs provide no relief-sin usitus could be contributi ng to worsening pt headache 1.23.24 - using warm compresses to neck, and cool compresses to forehead prnnot sleeping well - will try prn m relaxerpen ding see neuro 2.1 2.24 - hs flexeril helping, see below 4.24 - prn flexeril helping, see above Chronic sinusitis 828381 00 J32.9 see above - even had sinus problems back at rehab - sxs x few months, better but still persist - concerned - has used zpak and levaquin - no current pur nasal dc so will defer abx at this time 4.24 - pending ct sinuses later this week, pending see ent next week Body mass index 40+ - severely obese 814638303 E66.01 Z68.41 cont plenty of walking/co nsider HIIT, consider myplate.go v, rec increase sleep to 7-8 hours/nigh t 4.24 - seen by [facility] ([facility] ) - cont as dir Renal diso rder due to type 2 diabetes mellitus 544602973 E11.22 N18.2 Some improvemen t in diabetic values since the last visit 2 weeks ago. AM glucose is still elevated as well as postprandi al glucose. Increase basaglar to 25 u daily for the next 2 weeks until pt is on 5 mg of Mounjaro weekly. Then drop back to 20 u. Continue metformin . Lab results were discussed with pt. Elevated ALT of 59 due to fatty liver, elevated TRG 215 with low LDL, normal TSH . NO sign microalbum inuria.F/u 6 weeks in office for weight check and A1c. 06.26.23 - pt's next f/u c VM on 08.08.23che ck labs ac ov (p 07.09.23) Vitamin D deficiency 347 06853 E55.9 [id number] Carl Baird MD Main Office [address] [place] [address] 07/03/2023 15:38:37 07/03/2023 16:46:32 Dizziness 869875068 R42 Benign par oxysmal positional vertigo 923458835 H81.10 Neck pain 28423398 M54.2 [id number] Jose D Watkins MD Main Office [address] [facility] [address] [facility] [place] [address] 08/04/2023 10:31:42 08/04/2023 11:12:21 Vertigo 522040678 R42 It is unclear whether this is related to BPPV or to her prior CVA. She was advised to go to YouTube and look for exercises for vertigo to do at home. She has an upcoming appointmen t with vestibular rehab for further evaluation and I advised her to take 2 meclizine to see if that helped more with her symptoms. Hemiplegia and/or hemiparesis following stroke 3847180400 9107 I69.359 [id number] Jake Pierce MD Main Office [address] [facility] 207 [facility] [place] [address] 2023 09:33:25 2023 10:51:23 Hemiplegia and/or hemiparesis following stroke 2240592294 9107 I69.359 s/p cva c L hemiwas seen and [place] [facility] [place] after having a stroke s/p thrombecto my-MRI brain showed acute infarct in the right MCA territory- Small chronic infarct in the right frontal lobe-Echo with bubble study LVEF, no wall motion abnormalit y, no right to left shunting. bilateral LE venous dopplers negative-w ill order quality assurance monitor final to identify possible atrial fibrillati on - pending quality assurance monitor final 03.20.23 - stable, has OT/PT/MANAGER ZONE coming to her home, pt's purchased a hospital bedpending see neuro 2.1 2.24 - getting better / making progress, cont services as dir, cont f/u c neuro - ? may be transition ing to outpt PT next week? 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 AM glucose is still elevated as well as postprandi al glucose. Increase basaglar to 25 u daily for the next 2 weeks until pt is on 5 mg of Mounjaro weekly. Then drop back to 20 u. Continue metformin . Lab results were discussed with pt. Elevated ALT of 59 due to fatty liver, elevated TRG 215 with low LDL, normal TSH . NO sign microalbum inuria.F/u 6 weeks in office for weight check and A1c. 4.30.24 - pt's next f/u c VM on 08.08.23che ck labs ac ov (p 07.09.23) 9.24 - will get podiatry eval, check labs Needs infl uenza immunization 997218068 Z23 19 YEARS AND OLDER ONLY [id number] Jose D Watkins MD Main Office [address] [facility] [address] [place] [address] 01/18/2024 09:20:58 01/18/2024 09:46:54 Wound of skin 869299797 S31.105A x2 weeks-pt underwear was shrunk in laundry and pt noticed friction of her underwear line to her skin-has been covering a 3mm x 3mm wound with gauze; yellow drainage-d enies of any red flag symptoms-w ill provide topical antibiotic s, discussed conservati ve measuremen ts, and to avoid constricti ve clothing to the area [id number] Carl Baird MD Main Office [address] [facility] [address] [place] [address] 02/09/2024 09:21:12 02/09/2024 10:17:21 Acute sinusitis 76738410 J01.90 -patient already on flonase and zyrtec, advised continue use-Sent levaquin risk of tendon rupture discussed, risk of resistance discussed. -Flu and covid neg.-advis ed humidifier use-Advise d probiotic use with abx. Health Concerns Section Related Observation LastModified by Organization Detai ls LastModified Time None Recorded Concern Status LastModified by Organization Details LastModified Time None Recorded Advance Directives Directive Y: Payers Insurance Date Sequence Insurance Name Policy Number Policy Gilbert Covered Member ID Gilbert Member ID Guarantor Name 05/26/2024 2 [place] [facility] Mallorie H Archambeau [id number] 5 [id number] Mallorie H Archambeau 05/26/2024 3 [employer]ET[employer] (POS) [id number] Mallorie H Archambeau [id number] Mallorie H Archambeau 05/26/2024 4 [place] Mallorie H Archambeau [id number] 5 Mallorie H Archambeau 05/26/2024 2 [place] B[place] [employer] Mallorie H Archambeau [id number] Mallorie H Archambeau 05/26/2024 1 [facility] - DOS ON OR AFTER 2022 - PENITENTIARY OPTIONS AND ONE CARE (MEDICARE REPLACEMENT/A DVANTAGE - PPO) Mallorie H Archambeau [id number] Mallorie H Archambeau 05/26/2024 4 [employer] (HMO) Mallorie H Archambeau [id number] Mallorie H Archambeau 02/06/2019 1 *SELF PAY* De nise H Archambeau 06/16/2024 1 [place] Mallorie H Archambeau [id number] 5 Mallorie H Archambeau 05/26/2024 2 AETNA ([facility]) [id number] Mallorie H Archambeau [id number] Mallorie H Archambeau 05/26/2024 1 [place] Mallorie H Archambeau [id number] 5 [id number] 05 Mallorie H Archambeau 05/26/2024 2 [place] Mallorie H Archambeau [id number] 5 [id number] 05 Mallorie H Archambeau 11/18/2013 1 [facility] (HMO) [id number] Gene Archambeau [id number] Mallorie H Archambeau 05/26/2024 2 [place] Mallorie H Archambeau [id number] 5 Mallorie H Archambeau Notes Date Note Type Note Provider Name and Address Organization Details Recorded Time 07/03/19 24 text/htm l Syncope/DizzinessReported by PatientHPIFor quality, patient reportsroom spinning. For context, patient reportswith head movement. For associated symptoms, patient reportsno recent diarrhea,no recent vomiting, andno associated palpitations.Mallorie presents today accompanied by her , reporting an incident where she experienced sudden dizziness leading to a fall. She describes the event as follows: while lifting a window shade, the bright light from outside caused her discomfort, prompting her to quickly turn her head away. This sudden movement resulted in a sensation of the room spinning, causing her to lose her balance and fall, landing on her bottom. Although her head jerked backwards, she did not strike her head or her neck, but she does report some neck pain following the incident.She is currently taking meclizine for a known history of dizziness, which also helps alleviate her nausea. Mallorie has a medical history significant for a stroke in January 2023, for which she has been followed up by a neurologist. She denies any loss of consciousness during the incident. This episode of dizziness was isolated, and her symptoms resolved quickly thereafter. Regarding her general health, Mallorie denies any recent illnesses such as diarrhea or vomiting, and no episodes of palpitations or chest pain. She mentions that she makes an effort to stay well-hydrated by frequently consuming fluids. Carl Baird MD [address] [address], [place], [address], [facility] 07/03/2023 20:21:38 08/04/19 24 text/htm l ROS as noted in the HPI She comes in today mostly out of frustration for her current condition that started with a stroke 6 months ago. Her main concern today his her persistent vertigo. She takes 25 mg of meclizine with little to no improvement in her symptoms. She has an appointment next week at [facility] rehab. 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 Let me know, ty!! rev chart - sent outpt PT evmarge to [facility] on 10.23.23 - apparently has an appt to see them in november, wondering if can get in sooner - asked them to call to get on waitlist her last PT was with [facility] a few months ago - didn't have a good experience c them her speech is much better, but when she gets tired her speech is off a little Delores Hou PA-C [address] [facility] [address], [place], [address], [place] [facility] 11/07/2023 14:26:09 01/18/20 24 text/htm l ROS as noted in the HPI Mallorie is a 58yr old F who presents for a small wound on her pelvis- along where her underwear meets the skin. Reports her was doing laundry and shrank her underwear. About 2 weeks ago, felt rubbing along the underwear line and her skin and noticed a small wound above her pubic bone. Has been covering with a gauze and noticed discharge coming from the wound. Denies of any fever, chills, or red flag symptoms. Stephanie huff, [facility] 02/01/2024 14:40:37 02/09/20 24 text/htm l Sinusitis/AllergyReported by PatientHPIFor associated symptoms, patient reportsnasal discharge from both nostrils,fever/chills (101),feeling of strangulation,headache cheek,facial pain bilaterally,sinus pain nasal,sore throat,thick phlegm in throat,constantly clearing the throat,nasal discharge,nasal passage blockage bilaterally,ear fullness,nasal itching, andpain behind the eyes bothbut reportsno hemoptysis,no hematemesis,no difficulty breathing,no nausea or vomiting,no eye itching, andno skin itching. For context, patient reportsworse with seasonal allergen exposureandworse with environmental exposurebut reportsno recent upper respiratory infectionandno recent sick contacts. For location, patient reportsmaxillaryandfrontal. For onset/timing, patient reportsnew onsetandinitially started 2weeks ago. For severity, patient reportsno nosebleeds (epistaxis). For risk factors, patient reportsno current smoking or tobacco use,no history of smoking,no increased stress,no history of nasal trauma,no allergy to aspirin,no history of asthma,no dm, andno hiv. For alleviating factors, patient reportsrelief with saline nasal rinses,relief with nasal steroid flonase, andrelief with antihistamine cetirizine. For aggravating factors, patient reportsnot worse during an upper respiratory infection (a cold)andnot worse when allergies are active. For prior opinion, patient reportspcp. Patient presents her with concerns of a sinus infection. Carl Baird MD [address] [address], [place], [address], [facility] 02/09/2024 10:19:34 OBGyn Episode No OBEpisode recorded.
== END 2025-02-23 15:39 | disposition home or self-care (01) ==
LOC: HO.HMCH 14:37
PROVIDERS: PCP Internal Medicine; Visit Provider Internal Medicine
DX: E11.9 Type 2 diabetes mellitus without complications (principal); I63.9 Cerebral infarction, unspecified; F32.89 Other specified depressive episodes; D68.9 Coagulation defect, unspecified; F41.1 Generalized anxiety disorder; Z76.89 Persons encountering health services in other specified circumstances; K64.9 Unspecified hemorrhoids

== ENCOUNTER → 2025-02-23 14:36 | Outpatient (BNVA) | payer OTHER, SELFPAY | PROVIDERS: PCP Physician Assistant Medical; Visit Provider Internal Medicine | DX: F41.1 Generalized anxiety disorder (principal); D68.9 Coagulation defect, unspecified; I63.9 Cerebral infarction, unspecified; E11.9 Type 2 diabetes mellitus without complications; K64.9 Unspecified hemorrhoids; Z76.89 Persons encountering health services in other specified circumstances | CPT/HCPCS: 96127; 99202 ==

== ENCOUNTER → 2025-02-23 22:14 | Outpatient (BNV) | payer OTHER, SELFPAY | PROVIDERS: Admitting Provider Psychiatry & Neurology Psychiatry; Emergency Provider Emergency Medicine; PCP Internal Medicine; Visit Provider Internal Medicine | DX: R94.31 Abnormal electrocardiogram [ECG] [EKG] (principal); Z13.6 Encounter for screening for cardiovascular disorders | CPT/HCPCS: 93010 ==

== ENCOUNTER → 2025-02-24 11:53 | Outpatient (BNV) | payer OTHER, SELFPAY | PROVIDERS: Admitting Provider Psychiatry & Neurology Psychiatry; Emergency Provider Emergency Medicine; PCP Internal Medicine; Visit Provider Nurse Practitioner Family | DX: I10 Essential (primary) hypertension (principal) | CPT/HCPCS: 99221 ==

== ENCOUNTER → 2025-02-24 11:53 | Outpatient (BNV) | payer OTHER, SELFPAY | PROVIDERS: Admitting Provider Psychiatry & Neurology Psychiatry; Emergency Provider Emergency Medicine; PCP Internal Medicine; Visit Provider Psychiatry & Neurology Psychiatry | DX: F31.4 Bipolar disorder, current episode depressed, severe, without psychotic features (principal); F41.9 Anxiety disorder, unspecified | CPT/HCPCS: 90792 ==